=== PATIENT | male | born 1965 | race Two or more races ===

== ENCOUNTER 2025-03-02 14:00 | Emergency (ER) | payer MEDICAID, SELFPAY ==
[2025-03-02 14:05] VITALS: BP 126/61; PULSE 65; RESP 18; TEMP 36.4; O2SAT 99
[2025-03-02 14:06] VITALS: BMI 16.1
[2025-03-02 14:19] VITALS: PULSE 79; RESP 18; O2SAT 98
--- NOTE | 2025-03-02 14:37 | XR_ITS ---
Examination: Knee, left , 3 views Technique: Knee AP, lateral, oblique 3 views Date and time of exam: March 02, 2025 1436 hours INDICATIONS: Left knee pain beginning 3 hours ago FINDINGS: Moderate osteopenia Mild narrowing medial joint space Moderate knee effusion No fracture or dislocation IMPRESSION: Mild narrowing medial joint space Moderate knee effusion
[2025-03-02 15:02] LABS: Basophils # (Auto) 0.1 Thou/mm3 (0.0-0.2); Basophils % (Auto) 1 % (0-2.5); Eosinophils # (Auto) 0.1 Thou/mm3 (0.0-0.5); Eosinophils % (Auto) 1 % (0-10); Hematocrit 34.9 % (41.0-53.0); Hemoglobin 11.8 g/dL (13.5-16.0); Immature Granulocytes % (Auto) 0 % (0-0); Immature Granulocytes Auto 0.03 Thou/mm3 (0.00-0.00); Lymphocytes % (Auto) 18 % (10-50); Mean Corpuscular HGB Conc 33.8 g/dl (31.0-37.0); Mean Corpuscular Hemoglobin 31.3 pg (25.0-35.0); Mean Corpuscular Volume 93 fL (80-100); Monocytes % (Auto) 9 % (0-12); Neutrophils % (Auto) 71 % (37-80); Nucleated Red Blood Cell % 0 /100 WBC (0); Platelet Count 236 Thou/mm3 (140-440); Red Blood Count 3.77 Miln/mm3 (4.50-5.90); White Blood Count 11.2 Thou/mm3 (3.8-10.6)
[2025-03-02] MEDS: KETOROLAC INJ 60 MG/2 ML VIAL 30 MG IM (15:07)
--- NOTE | 2025-03-02 15:14 | EDNOTE_ITS ---
<Statement entered by Angela Lorenzo MD - 03/04/25 06:14> As co-signing physician, I was present and available for consult prn. I concur with the plan and care as documented by the midlevel provider. Lower Extremity Injury RME/HPI General Chief Complaint: Extremity Injury, Lower Stated Complaint: LEG PAIN Time Seen by Provider: 03/02/25 14:17 Source: patient Arrival date/time: 03/02/25 14:00 59-year-old male with no known medical history presents to the emergency room with a chief complaint of tenderness and pain to his left knee x 1 day Mode of arrival: ambulatory Limitations: no limitations Related Data Previous Rx's ?Medication ?Instructions ?Recorded acetaminophen 500 mg tablet 500 mg PO QID PRN fever or pain 06/07/20 (Tylenol Extra Strength) #30 tabs albuterol sulfate 90 mcg/actuation 2 puff inhalation Q ID PRN 06/07/20 aerosol inhaler shortness of breath or wheez ing #18 grams azithromycin 250 mg tablet See Rx Instructions PO .COM PLEX #6 06/07/20 tabs Allergies Allergy/AdvReac Type Severity Reaction Status Date / Time No Known Allergies Allergy Verified 03/02/25 14:23 Review of Systems Review of Systems Systems Reviewed: All systems reviewed, normal except as documented Constitutional Constitutional: Reports system reviewed and no additional complaints, except as documented, Denies fatigue, Denies fever(s), Denies headache(s) and Denies weakness Eyes Eyes: Reports system reviewed and no additional complaints, except as documented, Denies blurry vision and Denies change in vision ENT Ears, Nose, Mouth, and Throat: Reports system reviewed and no additional complaints, except as documented, Denies otalgia, Denies headache(s), Denies nasal congestion, Denies throat swelling and Denies vertigo Cardiovascular Cardiovascular: Reports system reviewed and no additional complaints, except as documented, Denies chest pain, Denies dyspnea and Denies dyspnea on exertion Respiratory Respiratory: Reports system reviewed and no additional complaints, except as documented, Denies chest congestion, Denies cough, Denies dyspnea, Denies dyspnea on exertion and Denies wheezing Gastrointestinal Gastrointestinal: Reports system reviewed and no additional complaints, except as documented, Denies abdominal pain, Denies cramping, Denies nausea and Denies vomiting Genitourinary Genitourinary: Reports system reviewed and no additional complaints, except as documented, Denies dysuria and Denies hematuria Musculoskeletal Musculoskeletal: Reports system reviewed and no additional complaints, except as documented, Denies back pain and Reports joint swelling Integumentary/Breasts Skin/Breast: Reports system reviewed and no additional complaints, except as documented and Denies wounds Neurologic Neurologic: Reports system reviewed and no additional complaints, except as documented, Denies confusion, Denies headache(s), Denies lack of coordination, Denies vertigo and Denies weakness Psychiatric Psychiatric: Reports system reviewed and no additional complaints, except as documented, Denies anxiety, Denies confusion, Denies depression, Denies paranoia, Denies suicidal ideation and Denies tactile hallucinations Endocrine Endocrine: Reports system reviewed and no additional complaints, except as documented and Denies fatigue Hematologic/Lymphatic Hematologic/Lymphatic: Reports system reviewed and no additional complaints, except as documented and Denies lymphadenopathy Allergic/Immunologic Allergic/Immunologic: Reports system reviewed and no additional complaints, except as documented, Denies throat swelling, Denies urticaria and Denies wheezing Past Medical History Past Medical History CARDIAC: Negative Congestive Heart Failure RESPIRATORY: Negative Chronic Obstructive Pulmonary Disease (COPD) GENITOURINARY: Negative Renal Disease ENDOCRINE: Positive Endocrine Disorders and Diabetes Mellitus Type 2; Negative Diabetes Mellitus Type 1 Social History SMOKING STATUS: Light (< 1 pack/day) ED Exam General Limitations: Present no limitations General appearance: Present alert and in no apparent distress Head Head exam: Present atraumatic Eye Eye exam: Present normal appearance, PERRL and EOMI ENT ENT exam: Present normal exam, normal oropharynx and mucous membranes moist Neck Neck exam: Present normal inspection, full ROM and trachea midline Chest Chest inspection: Present normal inspection and symmetric chest wall rise Respiratory Respiratory exam: Present normal lung sounds bilaterally Cardiovascular Cardiovascular exam: Present regular rate, normal rhythm and normal heart sounds Abdominal Exam Abdominal exam: Present soft and normal bowel sounds Extremities Exam Extremities exam: Present normal inspection and full ROM Expanded Lower Extremity Exam Hip/Pelvis exam: Present normal inspection Upper leg exam: Present normal inspection Knee exam: Present tenderness, swelling, effusion, pain with valgus and pain with varus; Absent full ROM Back Exam Back exam: Present normal inspection and full ROM Neurological Exam Neurological exam: Present alert, oriented X3 and CN II-XII intact Psychiatric Psychiatric exam: Present normal affect and normal mood Skin Skin exam: Present warm, dry, intact and normal color Course Quality Measures none Orders Category Date Time Status XR knee LT 3V Stat Exams 03/02/25 14:37 Completed CBC Stat Lab 03/02/25 14:50 Completed CK [Creatine Kinase] Stat Lab 03/02/25 14:50 Completed CMP [Comprehensive Metabolic Panel] Stat Lab 03/02/25 14:50 Completed Uric Acid Stat Lab 03/02/25 14:50 Completed Ketorolac Inj [Toradol Inj] Med 03/02/25 14:40 Discontinued 30 mg IM X1 ONE Vital Signs Vital signs: Vital Signs Temperature 97.5 F 03/02/25 14:05 Pulse Rate 65 03/02/25 14:05 Respiratory Rate 18 03/02/25 14:05 Blood Pressure 126/61 03/02/25 14:05 Pulse Oximetry (%) 99 03/02/25 14:05 Oxygen Delivery Method Room Air 03/02/25 14:05 O2 saturation 99% within normal limits Extremity Injury, Lower MDM Narrative MDM Narrative:: 59-year-old male with no known medical history presents to the emergency room with a chief complaint of tenderness and pain to his left knee x 1 day Patient is hemodynamically stable and in no apparent distress. Physical examination shows tenderness and pain to the patient's left knee. Patient denies any trauma states he did not slip and just began yesterday. CBC CMP were negative for any acute findings. CK was negative for rhabdo. Uric acid was negative X-ray of the knee was negative for any acute fracture or dislocation. Patient was educated to follow-up with primary care provider to assess for any ligament damage or tears as an MRI may be indicated Patient was discharged and educated to follow-up with primary care provider in the next 24 to 48 hours and return to the emergency room for any evidence of worsening signs or symptoms Patient data External records reviewed:: [facility] previous records Clinical information provided by:: patient Social determinants that could affect healthcare access:: none Patient has the following chronic illnesses:: No chronic illness How is presenting disease/condition affected by chronic disease/condition?: no chronic disease Evaluation data The following diagnostics were reviewed and interpreted by me:: lab results and radiology exam(s) Lab and/or radiology exams considered but not ordered:: Labs and radiology exams considered and ordered Interpretation Summary: X-ray knee-FINDINGS: Moderate osteopenia Mild narrowing medial joint space Moderate knee effusion No fracture or dislocation IMPRESSION: Mild narrowing medial joint space Moderate knee effusion Medications / Prescriptions Medications or Prescriptions considered but not ordered:: Medication given Medication administrations:: Medication Administration History Discontinued Medications Ketorolac Tromethamine (Ketorolac Inj 60 Mg/2 Ml Vial) 30 mg IM X1 ONE Stop: 03/02/25 14:41 Last Admin: 03/02/25 15:07 Dose: 30 mg Documented By: KF Medication given Consultations Consultation(s) initiated? (list below): No Diagnosis Extremity Injury, Lower Differential Diagnosis: acute internal derangement of knee and other Most likely diagnosis given after review of the tests above:: Knee sprain Admission Indicated Admission indicated?: not indicated Admission Request Was there a request for admission?: No Disposition Plan Disposition Plan: Discharge Discharge Attestation Discharge Attestation: The patient and all family members were given an opportunity to ask questions and understood the discharge instructions. Discharge instructions specifically effects, indications for sooner follow up or return to the emergency department, and the expected course of current diagnosis. Patient condition: Stable Discharge Plan Plan Patient Disposition: HOME (Self Care) Discharge Disposition comment: Stable Prescriptions/Referrals Prescriptions/Med Rec: No Action azithromycin 250 mg tablet See Rx Instructions .ROUTE .COMPLEX Qty: 6 0RF Rx Instructions: take 500 mg today (day 1), then 250 mg for 4 days (days 2-5) acetaminophen [Tylenol Extra Strength] 500 mg tablet 500 mg PO QID PRN (Reason: fever or pain) Qty: 30 0RF albuterol sulfate 90 mcg/actuation HFA aerosol inhaler 2 puff IH QID PRN (Reason: shortness of breath or wheezing) Qty: 18 0RF Referrals: No Primary/Family,Physician [Primary Care Provider] - In 1 week Problem List Clinical Impression: Left knee sprain Patient/Caregiver Discharge Instructions Education Materials: ED GEORGIE Wrap, ED Knee Sprain Additional Instructions: Por favor, consulte con morrison m?dico de cabecera en las pr?ximas 24 a 48 horas. Se le realizaron radiograf?as de rodilla y resultaron negativas para cualquier hallazgo vladimir. No hay fractura ni luxaci?n aguda. Morrison an?lisis de timmy fue negativo para cualquier infecci?n. Por favor, consulte con morrison m?dico de cabecera para un control y evaluaci?n adicionales de los ligamentos de morrison rodilla. Podr?a estar indicada kelly resonancia magn?charli. Ante cualquier evidencia de empeoramiento de los signos o s?ntomas, acuda a urgencias de inmediato. Print Language: Tajik Stand Alone Forms: Rayna Award Info., Patient Portal Info Letter PA/ESTHETICS INSTRUCTOR Supervising Physician PA/ESTHETICS INSTRUCTOR Supervising Physician: Dr. LORENZO
[2025-03-02 15:21] LABS: Alanine Aminotransferase 13 U/L (10-49); Albumin, Serum 4.5 gm/dL (3.4-4.8); Albumin/Globulin Ratio 1.6 (1.2-2.2); Alkaline Phosphatase 139 U/L (46-116); Anion Gap 9 (7-16); Aspartate Amino Transferase 21 U/L (0-34); BUN/Creatinine Ratio 23 Ratio (12-20); Bilirubin,Total 0.4 mg/dL (0.3-1.2); Blood Urea Nitrogen 28 mg/dL (9-23); Calcium 9.4 mg/dL (8.3-10.6); Calcium (Corrected) 9.4 mg/dL (8.5-10.1); Carbon Dioxide 25.9 mMol/L (20.0-31.0); Chloride 107 mMol/L (98-107); Creatine Kinase 167 U/L (34-171); Creatinine (Component) 1.2 mg/dL (0.6-1.3); Estimated Creatinine Clearance 42.7 mL/min (>60); Globulin 2.8 gm/dL (2.3-3.5); Glucose 167 mg/dL (74-106); Osmolality,Calculated 292 (275-295); Sodium 142 mMol/L (136-145); Total Protein 7.3 gm/dL (5.7-8.2); Uric Acid 5.3 mg/dL (3.7-9.2); eGFR > 60 See Note
[2025-03-02 16:28] VITALS: BP 142/90; PULSE 98; RESP 17; TEMP 36.7; O2SAT 97
--- NOTE | 2025-03-02 16:40 | PC.NURSE ---
per patient's sister family will tile picker aptient. ETA [id number]
== END 2025-03-02 17:16 | disposition home or self-care (01) ==
PROVIDERS: Nurse Practitioner Family; Emergency Provider Emergency Medicine
DX: S83.92XA Sprain of unspecified site of left knee, initial encounter (principal); X58.XXXA Exposure to other specified factors, initial encounter
CPT/HCPCS: 36415; 73562; 80053; 82550; 84550; 85025; 96372; 99283; J1885

== ENCOUNTER 2025-08-10 10:44 | Inpatient (IN) | payer MEDICAID, SELFPAY ==
[2025-08-10] VITALS (9 sets, daily range): BP systolic 126–168; BP diastolic 79–106; PULSE 99–114; RESP 16–21; TEMP 36.3–37.1; O2SAT 94–100; BMI 15.2; BMI 15.6
--- NOTE | 2025-08-10 11:08 | PD.EDEXREM ---
ED Extremity Problem RME/HPI General Chief complaint: Ankle/Foot Injury Stated complaint: INFECTION Time Seen by Provider: 08/10/25 10:59 Arrival date/time: 08/10/25 10:44 RME / HPI RME / HPI Narrative: 60 year old male presents to the ED for evaluation of left foot redness and left great toe swelling beginning ~ 10 days ago. Accompanied by pain. Additionally reports mild redness to the right foot beginning 7 days ago. Denies any known injury/trauma. Denies fevers, chills, sweats. No history of similar redness/swelling. Related Data Previous Rx's ?Medication ?Instructions ?Recorded acetaminophen 500 mg tablet 500 mg PO QID PRN fever or pain 06/07/20 (Tylenol Extra Strength) #30 tabs albuterol sulfate 90 mcg/actuation 2 puff inhalation QID PRN 06/07/20 aerosol inhaler shortness of breath or wheezing #18 grams azithromycin 250 mg tablet See Rx Instructions PO .COMPLEX #6 06/07/20 tabs Allergies Allergy/AdvReac Type Severity Reaction Status Date / Time No Known Allergies Allergy Verified 03/02/25 14:23 Review of Systems Review of Systems Systems Reviewed: All systems reviewed, normal except as documented Past Medical History Past Medical History CARDIAC: Positive Hypercholesterolemia and Hypertension ENDOCRINE: Positive Endocrine Disorders and Diabetes Mellitus Type 2 Social History SMOKING STATUS: Current every day smoker ED Exam Narrative Physical exam: GENERAL APPEARANCE: alert and oriented x 4, well-developed, well-nourished, no acute distress HEENT: Normocephalic, atraumatic; pupils equal, round, reactive to light; EOMI; mucous membranes pink, moist; oropharynx clear NECK: Supple LUNGS: CTABL; no wheezes, no rales, no rhonchi HEART: Regular rate, regular rhythm; normal S1, S2; no murmurs ABDOMEN: non distended; normal BS; soft, no tenderness, no guarding, no rebound; no masses, no organomegaly, no hernia EXTREMITIES: left foot erythema edema with a wound to the plantar surface of the left great toe, no discharge, erythema to the plantar surface of the right foot with some blistering to the area near the arch; no edema NEUROLOGIC: awake; alert and oriented x4; cranial nerves II-XII grossly intact PSYCHIATRIC: appropriate mood and affect SKIN: warm, dry, normal color; no rashes Course Quality Measures none Orders Category Date Time Status XR foot comp LT min 3V Stat Exams 08/10/25 11:14 Completed A1C [Glycohemoglobin w (eAG)] Stat Lab 08/10/25 11:29 Completed B-Type Natriuretic Peptide Stat Lab 08/10/25 11:29 Completed Blood Culture (Lab) Stat Lab 08/10/25 11:29 Received CBC Stat Lab 08/10/25 11:29 Completed CRP [C-Reactive Protein] Stat Lab 08/10/25 11:29 Completed Comprehensive Metabolic Panel Stat Lab 08/10/25 11:29 Completed Creatinine,Random Urine Stat Lab 08/10/25 13:37 Ordered ESR [Sed Rate (ESR)] Stat Lab 08/10/25 11:29 Completed Electrolytes, Urine Random Stat Lab 08/10/25 13:37 Ordered Lactate (Lactic Acid) Stat Lab 08/10/25 11:29 Completed Magnesium Stat Lab 08/10/25 11:29 Completed Partial Thromboplastin Time Stat Lab 08/10/25 11:29 Completed Procalcitonin Stat Lab 08/10/25 11:29 Completed Protein Total, Random Urine Stat Lab 08/10/25 13:37 Ordered Prothrombin Time with INR Stat Lab 08/10/25 11:29 Completed Troponin I Stat Lab 08/10/25 11:29 Completed UA, C/S IF [Urinalysis, C/S if Indicated] Stat Lab 08/10/25 12:04 Completed Urea Nitrogen, Random Urine Stat Lab 08/10/25 13:37 Ordered Piper/Tazo 3.375 gm Premix [Zosyn] Med 08/10/25 13:34 Active 3.375 gm in 50 ml IV X1 Sodium Chloride 0.9% 1000 ml [Ns] 1,000 ml Med 08/10/25 13:33 Active IV 999 mls/hr Vancomycin/Ns 1 gm Ivpb 200 ml Med 08/10/25 13:34 Active IV X1 Vital Signs Vital signs: Vital Signs Temperature 98.4 F 08/10/25 10:46 Pulse Rate 105 H 08/10/25 10:46 Respiratory Rate 16 08/10/25 10:46 Blood Pressure 126/84 08/10/25 10:46 Pulse Oximetry (%) 99 08/10/25 10:46 Oxygen Delivery Method Room Air 08/10/25 10:46 Pulse ox is 99% on room air which is adequate. Extremity Problem MDM Narrative MDM Narrative:: Charlotte Olsen, hussein scribing for and in the presence of Dr. Lorenzo. Patient data External records reviewed:: [facility] previous records Clinical information provided by:: patient Social determinants that could affect healthcare access:: none Patient has the following chronic illnesses:: Diabetes How is presenting disease/condition affected by chronic disease/condition?: exacerbated by Evaluation data The following diagnostics were reviewed and interpreted by me:: lab results and radiology exam(s) Lab and/or radiology exams considered but not ordered:: None Interpretation Summary: Ordering Physician: Angela Lorenzo MD Date of Service: 08/10/25 Procedure(s): XR foot comp LT min 3V Accession Number(s): [id number] cc: Angela Lorenzo MD; Ray So DO~ Examination: Foot, left, 3 views Technique: AP, oblique, lateral views foot, 3 views Date and time of exam: 08/10/2025, 11:53 a.m. INDICATION: Left foot pain, swelling and ulcers for 2 weeks. History of diabetes. FINDINGS: Diffuse forefoot soft tissue swelling is present, severely involving the great toe with foci of subcutaneous gas along the plantar side of the great toe. There is a small focal lucency involving the distal plantar side of the distal phalanx of the great toe, suspicious for erosion/early osteomyelitis. Elsewhere, no evidence for osteomyelitis. No acute fracture or subluxation. There appear to be hammertoe deformities of the second through fifth toes. Bilateral bunions noted. IMPRESSION: Cellulitis changes most severely involving the great toe with subcutaneous gas and small focal erosion at the distal plantar side of the distal phalanx of the great toe concerning for osteomyelitis. MRI can be obtained for further evaluation. Dictated By: Ray So DO Signed By: <Electronically signed by Ray So DO in OV> 08/10/25 1225 Medications / Prescriptions Medications or Prescriptions considered but not ordered:: None Medication administrations:: Medication Administration History Sodium Chloride (Ns) 1,000 mls @ 999 mls/hr IV .Q1H1M ONE Stop: 08/10/25 14:33 Vancomycin/Sodium Chloride (Vancomycin/Ns 1 Gm Ivpb) 200 mls @ 120 mls/hr IV X1 ONE Stop: 08/10/25 15:13 Piperacillin/Tazobactam/Dextrose (Zosyn) 3.375 gm in 50 mls @ 100 mls/hr IV X1 ONE; Protocol Stop: 08/10/25 14:03 See above Consultations Consultation(s) initiated? (list below): Yes Consultation #1 (Physician, Specialty, Details): I spoke with hospitalist team B for admission. Time: 13:38 Diagnosis Most likely diagnosis given after review of the tests above:: Cellulitis Osteomyelitis JUNO Admission Indicated Admission indicated?: indicated Admission Request Was there a request for admission?: Yes Admission Attestation Admission request attestation: Discussed case with [] from Hospitalist service regarding admission. Discussed patients ED course, exam findings, labs, and radiology results. The Hospitalist [agrees,declines] to accept the patient for admission. Disposition Plan Disposition Plan: Admit Discharge Plan Plan Patient Disposition: Admit Acute Care w/in Hospital Prescriptions/Referrals Prescriptions/Med Rec: No Action azithromycin 250 mg tablet See Rx Instructions .ROUTE .COMPLEX Qty: 6 0RF Rx Instructions: take 500 mg today (day 1), then 250 mg for 4 days (days 2-5) acetaminophen [Tylenol Extra Strength] 500 mg tablet 500 mg PO QID PRN (Reason: fever or pain) Qty: 30 0RF albuterol sulfate 90 mcg/actuation HFA aerosol inhaler 2 puff IH QID PRN (Reason: shortness of breath or wheezing) Qty: 18 0RF Referrals: Gregory Narayanan MD [Primary Care Provider, Family Practice] - In 1 week Problem List Clinical Impression: Cellulitis, Osteomyelitis, JUNO (acute kidney injury) Patient/Caregiver Discharge Instructions Print Language: Burmese Stand Alone Forms: Rayna Award Info., Patient Portal Info Letter
--- NOTE | 2025-08-10 11:14 | XR_ITS ---
Examination: Foot, left, 3 views Technique: AP, oblique, lateral views foot, 3 views Date and time of exam: 08/10/2025, 11:53 a.m. INDICATION: Left foot pain, swelling and ulcers for 2 weeks. History of diabetes. FINDINGS: Diffuse forefoot soft tissue swelling is present, severely involving the great toe with foci of subcutaneous gas along the plantar side of the great toe. There is a small focal lucency involving the distal plantar side of the distal phalanx of the great toe, suspicious for erosion/early osteomyelitis. Elsewhere, no evidence for osteomyelitis. No acute fracture or subluxation. There appear to be hammertoe deformities of the second through fifth toes. Bilateral bunions noted. IMPRESSION: Cellulitis changes most severely involving the great toe with subcutaneous gas and small focal erosion at the distal plantar side of the distal phalanx of the great toe concerning for osteomyelitis. MRI can be obtained for further evaluation.
[2025-08-10 12:02] LABS: Lactate (Lactic Acid) 1.3 mMol/L (0.4-2.0)
[2025-08-10 12:03] LABS: Basophils # (Auto) 0.0 Thou/mm3 (0.0-0.2); Basophils % (Auto) 0 % (0-2.5); Eosinophils # (Auto) 0.1 Thou/mm3 (0.0-0.5); Eosinophils % (Auto) 0 % (0-10); Hematocrit 34.8 % (41.0-53.0); Hemoglobin 11.8 g/dL (13.5-16.0); Immature Granulocytes Auto 0.06 Thou/mm3 (0.00-0.00); Lymphocytes # (Auto) 0.7 Thou/mm3 (1.0-4.8); Lymphocytes % (Auto) 6 % (10-50); Mean Corpuscular HGB Conc 33.9 g/dl (31.0-37.0); Mean Corpuscular Hemoglobin 31.0 pg (25.0-35.0); Mean Corpuscular Volume 91 fL (80-100); Monocytes # (Auto) 1.0 Thou/mm3 (0.0-0.8); Monocytes % (Auto) 8 % (0-12); Neutrophils # (Auto) 11.3 Thou/mm3 (1.8-7.7); Neutrophils % (Auto) 86 % (37-80); Nucleated Red Blood Cell # 0.00 Thou/mm3 (0.00-0.00); Nucleated Red Blood Cell % 0 /100 WBC (0); Platelet Count 233 Thou/mm3 (140-440); RDW Standard Deviation 46.7 fL (35.1-43.9); Red Blood Count 3.81 Miln/mm3 (4.50-5.90); White Blood Count 13.2 Thou/mm3 (3.8-10.6)
[2025-08-10 12:12] LABS: Collection Type, Urine Clean Catch; Squamous Epithelial Cell,Urine 0 /hpf (0-5)
[2025-08-10 12:20] LABS: Bacteria,Urine Rare; Bilirubin,Urine Negative (Negative); Blood,Urine Negative (Negative); Clarity,Urine Clear (Clear/Hazy); Color,Urine Lt-Yellow (Lt Yel-Yel); Culture Indicated,Urine Not Indicated; Glucose, Urine 4+ (Negative); Ketones,Urine Negative (Negative); Leukocyte Esterase,Urine Negative (Negative); Nitrite,Urine Negative (Negative); PH,Urine 6.0 (5.0-7.0); Protein,Urine Trace (Neg - Trace); RBC,Urine < 1 /hpf (0-3); Specific Gravity,Urine 1.014 (1.001-1.035); Urobilinogen,Urine Negative mg/dL (0.0-1.0); WBC,Urine 4 /hpf (0-5)
[2025-08-10 12:24] LABS: INR 0.9 (0.9-1.3); Partial Thromboplastin Time 28.8 Seconds (22.0-36.0); Prothrombin Time 9.9 Seconds (9.0-12.2)
--- NOTE | 2025-08-10 12:30 | PC.NURSE ---
PER PROVIDER OKAY TO FEED PT. PT GIVEN SANDWICH AND WATER.
[2025-08-10 12:34] LABS: Glucose Estimated Average 148 mg/dL (80-131); Hemoglobin A1C 6.8 % Hgb (4.8-6.0)
[2025-08-10 12:38] LABS: B-Type Natriuretic Peptide 192 pg/mL (0-100)
[2025-08-10 12:53] LABS: Alanine Aminotransferase 14 U/L (10-49); Albumin, Serum 4.8 gm/dL (3.4-4.8); Albumin/Globulin Ratio 1.6 (1.2-2.2); Alkaline Phosphatase 88 U/L (46-116); Anion Gap 11 (7-16); Aspartate Amino Transferase 18 U/L (0-34); BUN/Creatinine Ratio 15 Ratio (12-20); Bilirubin,Total 0.5 mg/dL (0.3-1.2); Blood Urea Nitrogen 37 mg/dL (9-23); Calcium 10.4 mg/dL (8.3-10.6); Calcium (Corrected) 10.4 mg/dL (8.5-10.1); Carbon Dioxide 25.1 mMol/L (20.0-31.0); Chloride 102 mMol/L (98-107); Creatinine (Component) 2.4 mg/dL (0.6-1.3); Estimated Creatinine Clearance 19.9 mL/min (>60); Globulin 3.0 gm/dL (2.3-3.5); Glucose 204 mg/dL (74-106); Magnesium 2.2 mg/dL (1.6-2.6); Osmolality,Calculated 290 (275-295); Potassium 4.3 mMol/L (3.4-5.1); Procalcitonin 1.47 ng/ml (0.0-0.49); Sodium 138 mMol/L (136-145); Total Protein 7.8 gm/dL (5.7-8.2); Troponin I < 0.020 ng/mL (0.0-0.045); eGFR 30 See Note
[2025-08-10 12:56] LABS: C-Reactive Protein 26.4 mg/dL (0.0-0.9)
[2025-08-10 13:13] LABS: Sed Rate (ESR) 84 mm/hr (0-20)
[2025-08-10 14:17] LABS: Chloride,Urine Random 41.1 mMol/L (55.0-125.0); Creatinine,Random Urine 52 mg/dL (30-125); Potassium,Urine Random 20 mMol/L (12-62); Protein Total, Random Urine 36 mg/dL (1-14); Sodium,Urine Random 36.9 mMol/L (20.0-110.0); Urea Nitrogen, Random Urine 340.0 mg/dL (350.0-1000.0)
--- NOTE | 2025-08-10 14:35 | XR_ITS ---
CLINICAL INDICATION: Shortness of Breath Exam time: 08/10/2025, 2:43 p.m. TECHNIQUE: XR chest 1V portable COMPARISON: Chest radiograph 06/06/2020 FINDINGS: The cardiomediastinal silhouette is within normal limits. No airspace opacities suggestive of pneumonia. No mass detected. No pleural effusion or pneumothorax. No acute osseous abnormality detected. IMPRESSION: No radiographic evidence for acute cardiopulmonary abnormality. No significant interval change since the comparison study. - This report was generated utilizing speech recognition software. -
[2025-08-10] MEDS: SODIUM CHLORIDE 0.9% 1000 ML 1,000 ML 999 ML IV (14:41)
[2025-08-10] MEDS: PIPER/TAZO 3.375 GM PREMIX 3.375 GM/50 ML BAG IV (14:42)
[2025-08-10] MEDS: VANCOMYCIN/NS 1 GM IVPB 200 ML IV (14:59)
[2025-08-10] MEDS: CLINDAMYCIN 900MG IVPB 900 MG in PRE-MIXED 1 BAG 50 MG IV ×2 (15:33→21:38)
[2025-08-10] MEDS: RINGERS LACTATED 1000 ML 1,000 ML 999 ML IV (15:33)
[2025-08-10 15:38] LABS: Amphetamine/Methamp Scrn,U Positive (Negative); Barbiturate Screen,Urine Negative (Negative); Benzodiazepines Screen,Urine Negative (Negative); Benzoylecgonine Screen, Ur Negative (Negative); Fentanyl Screen,Urine Negative (Negative); Opiate Screen,Urine Negative (Negative); THC Screen,Urine Negative (Negative)
[2025-08-10 16:19] LABS: HIV (1&2) Antibody Rapid Non-Reactive
[2025-08-10 16:19] LABS: Hepatitis A Antibody IgM Non Reactive (Non React); Hepatitis B Core Antibody IgM Non Reactive (Non React); Hepatitis B Surface Antigen Non Reactive (Non React); Hepatitis C Antibody Non Reactive (Non React)
[2025-08-10] MEDS: CEFEPIME INJ 1 GM in SODIUM CHLORIDE 0.9% (Popper) 50 ML IV (16:25)
--- NOTE | 2025-08-10 17:38 | PC.NURSE ---
pt arrived on floor. blood pressure 165/105. HR. [address] Mckinnon and made aware. No new orders at this time.
--- NOTE | 2025-08-10 17:43 | ESHP_ITS ---
<Statement entered by Dajuan Rosenberg MD - 08/10/25 18:28> Patient seen and examined at bedside. I discussed and supervised with the regulatory affairs intern physician who took care of this patient. I personally saw and examined the patient. I agree with most of the assessment and plan. Plan of care discussed with attending Dr. Guillen. Dajuan Rosenberg MD PGY-2 Documentation for date of: 08/10/25 HPI History of Present Illness History of present illness: A 60-year-old male with past medical history of hypertension, diabetes mellitus presents with left foot and great toe redness and swelling x 10 days and right bottom foot redness x 7 days. ?Patient reported left great toe problem for the past 2 years, has never gotten this bad. 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 Did not know how he got his wounds.? Saw foot doctor 2 weeks ago with his feet were still normal. Denies any known injury/trauma. Denies fevers, chills, sweats. ?No history of IV drug use but admitted to smoking methamphetamine. ED course: Labs significant for: WBC 13.2, hemoglobin 0.8, lactate 1.3, ferritin 20.4, ESR 84, Pro-Dylan 1.47. A1c 6.8%. BUN 37, creatinine 2.4, eGFR 30, JUNO. Imaging significant for: X-ray left foot showing signs of osteomyelitis, soft tissue swelling concerning for cellulitis, imaging concerning for subcutaneous gas. Patient received vancomycin, Zosyn, 1 L bolus normal saline in the ED. PMH: HTN, DM PSH: Bilateral cataract surgery. SH: patient endorses methamphetamine use, smoking quarter pack a day x 50 years, reports history of alcohol abuse but last drink 3 months ago. Allergies:? No known drug allergies Medications: Denies Review of Systems Review of Systems Systems Reviewed: All systems reviewed, normal except as documented Past Medical History Past Medical History Comments PMH COMMENT: PMH: HTN, DM PSH: Bilateral cataract surgery. SH: patient endorses methamphetamine use, smoking quarter pack a day x 50 years, reports history of alcohol abuse but last drink 3 months ago. Allergies:? No known drug allergies Medications: Denies Exam Vital Signs Temp Pulse Resp BP Pulse Ox O2 Del Method 98.5 F 107 H 18 154/97 H 98 Room Air 08/10/25 12:21 08/10/25 16:00 08/10/25 16:00 08/10/25 16:00 08/10/25 16:00 08/10/25 12:21 Narrative Exam GENERAL APPEARANCE: alert and oriented x 4, cachexia, no acute distress HEENT: Temporal wasting, atraumatic; constricted pupil bilaterally; EOMI; mucous membranes pink, moist; oropharynx clear NECK: Supple LUNGS: Distant breath sounds bilaterally HEART: Regular rate, regular rhythm ABDOMEN: non distended; normal BS; soft, no tenderness, no guarding, no rebound; no masses, no organomegaly, no hernia EXTREMITIES: Right plantar erythema spreading to lateral foot with puncture wounds, tenderness to palpation, white fluctuant, possible abscess, concerning for cellulitis versus osteomyelitis. ?Left big toe swelling and erythema spreading to mid dorsum foot with plantar puncture wound, tender to palpation, white fluctuant in lateral big toe, concerning for cellulitis versus osteomyelitis. NEUROLOGIC: awake; alert and oriented x4; cranial nerves II-XII grossly intact PSYCHIATRIC: appropriate mood and affect SKIN: warm, dry, normal color; no rashes Results: Labs 08/11/25 04:57 08/11/25 04:57 Labs: Short CBC 08/10/25 Range/Units 11:29 WBC 13.2 H (3.8-10.6) Thou/mm3 Hgb 11.8 L (13.5-16.0) g/dL Hct 34.8 L (41.0-53.0) % Plt Count 233 (140-440) Thou/mm3 BMP 08/10/25 11:29 Sodium 138 Potassium 4.3 Chloride 102 Carbon Dioxide 25.1 BUN 37 H Creatinine 2.4 H Glucose 204 H Calcium 10.4 Cardiac Enzymes 08/10/25 Range/Units 11: Troponin I < 0.020 (0.0-0.045) ng/mL Liver Function 08/10/25 Range/Units 11:29 Total Bilirubin 0.5 (0.3-1.2) mg/dL AST 18 (0-34) U/L ALT 14 (10-49) U/L Alkaline Phosphatase 88 (46-116) U/L Albumin 4.8 (3.4-4.8) gm/dL Urine 08/10/25 Range/Units 12:04 Urine Color Lt-Yellow (Lt Yel-Yel) Urine Clarity Clear (Clear/Hazy) Urine pH 6.0 (5.0-7.0) Ur Specific [place] 1.014 (1.001-1.035) Urine Protein Trace (Neg - Trace) Urine Glucose (UA) 4+ A (Negative) Quality Measures Quality Measures VTE prophylaxis Medications Home Medications and Allergies Allergies Allergy/AdvReac Type Severity Reaction Status Date / Time No Known Allergies Allergy Verified 08/11/25 14:51 Visit Medications Acetaminophen (Acetaminophen 325 Mg Tablet) 650 mg PO Q6H PRN PRN Reason: Fever >101.5 Stop: 09/09/25 14:28 Dextrose (Dextrose 50%-Water Inj 50 Ml Syringe) 25 ml IV Q15MIN PRN PRN Reason: BG 50-70 responsive npo pt Stop: 09/09/25 14:42 Dextrose (Dextrose 50%-Water Inj 50 Ml Syringe) 50 ml IV Q15MIN PRN PRN Reason: BG <50 OR BG <70 & pt unresponsive Stop: 09/09/25 14:42 Docusate Sodium (Docusate Sod 100 Mg Capsule) 100 mg PO QDAY PRN; Protocol PRN Reason: CONSTIPATION Stop: 09/09/25 14:33 Glucagon (Glucagon Inj 1 Mg Vial) 1 mg IM Q15MIN PRN PRN Reason: BG <70, and no IV access Heparin Sodium (Porcine) (Heparin Sod Inj 5000 Unit/Ml Vial) 5,000 unit SC Q12HR [facility] Stop: 08/24/25 20:59 Hydromorphone HCl (Hydromorphone Inj 2 Mg/Ml Vial) 1 mg IVP Q2H PRN PRN Reason: PAIN SCALE 7-10 (Severe Stop: 08/15/25 14:33 Clindamycin Phosphate 900 mg/ (IV Miscellaneous Supplies) 50 mls @ 50 mls/hr IV Q8HR [facility] Stop: 08/17/25 14:44 Last Admin: 08/10/25 15:33 Dose: 50 mls/hr Cefepime HCl 2 gm/ Sodium (Chloride) 50 mls @ 100 mls/hr IV Q12HR [facility] Stop: 08/17/25 20:59 Metronidazole (Flagyl 500 Mg Iv) 500 mg in 100 mls @ 200 mls/hr IV Q8HR BO Stop: 08/17/25 21:59 Insulin Human Lispro (Insulin Lispro (Admelog) 1 Unit/0.01 Ml Unit) 0 unit SC ACHS BO; Protocol Stop: 09/09/25 17:44 Ondansetron HCl (Ondansetron Inj 2 Mg/Ml Inj 2 Ml) 4 mg IVP Q6H PRN; Protocol PRN Reason: NAUSEA OR VOMITING Stop: 09/09/25 14:28 Pharmacy Consult (Vancomycin Pharmacy To Dose 1 Each Each) 1 each IV QDAY PRN PRN Reason: PROTOCOL Stop: 09/10/25 08:59 Sennosides (Senna Tablet) 1 tab PO QDAY PRN; Protocol PRN Reason: constipation Stop: 09/09/25 14:33 Tramadol HCl (Tramadol Hcl 50 Mg Tablet) 50 mg PO Q6HR PRN PRN Reason: PAIN SCALE 4-6 (Moderate Stop: 08/15/25 14:33 Last Admin: 08/10/25 16:25 Dose: 50 mg Discontinued Medications Sodium Chloride (Ns) 1,000 mls @ 999 mls/hr IV .Q1H1M ONE Stop: 08/10/25 14:33 Last Admin: 08/10/25 14:41 Dose: 999 mls/hr Vancomycin/Sodium Chloride (Vancomycin/Ns 1 Gm Ivpb) 200 mls @ 120 mls/hr IV X1 ONE Stop: 08/10/25 15:13 Last Admin: 08/10/25 14:59 Dose: 120 mls/hr Piperacillin/Tazobactam/Dextrose (Zosyn) 3.375 gm in 50 mls @ 100 mls/hr IV X1 ONE; Protocol Stop: 08/10/25 14:03 Last Admin: 08/10/25 14:42 Dose: 100 mls/hr Lactated Ringer's (Lactated Ringers) 1,000 mls @ 999 mls/hr IV .Q1H1M ONE Stop: 08/10/25 15:39 Last Admin: 08/10/25 15:33 Dose: 999 mls/hr Piperacillin/Tazobactam/Dextrose (Zosyn) 3.375 gm in 50 mls @ 12.5 mls/hr IV Q12HR BO; Protocol Stop: 08/17/25 20:59 Metronidazole (Flagyl 500 Mg Iv) 500 mg in 100 mls @ 200 mls/hr IV Q6HR BO Stop: 08/17/25 15:13 Cefepime HCl 1 gm/ Sodium (Chloride) 50 mls @ 100 mls/hr IV Q12HR BO Stop: 08/17/25 15:13 Last Admin: 08/10/25 16:25 Dose: 100 mls/hr Insulin Human Lispro (Insulin Lispro (Admelog) 1 Unit/0.01 Ml Unit) 0 unit SC Q6HR BO; Protocol Stop: 09/09/25 17:59 Tuberculin PPD (Tuberculin Ppd Inj 5 Unit/0.1 Ml Dose) 5 unit ID X1 ONE Stop: 08/10/25 15:21 Assessment & Plan Plan #Bilateral infected foot wounds concerning for cellulitis versus osteomyelitis -? Cellulitis with subcutaneous gas and small focal bony erosion concerning osteomyelitis Plan: -? Pending blood culture -? Continue clindamycin, vancomycin, cefepime, flagyl (started 08/10) -? Lactated ringer 1 L bolus -? Tramadol and Dilaudid for pain control as needed -? Follow up MRI foot bilaterally with contrast to evaluate for osteomyelitis -? Consider consult surgery tomorrow #JUNO, likely prerenal -? Creatinine of 2.4, from baseline of 1.2 - Received 1 L bolus NS in ED. Additional bolus 1 L LR. Plan: -? Continue IV fluid -? Reassess renal function after MRI with contrast -? Avoid further nephrotoxic agents -? Monitor renal function daily #Cachexia -? BMI of 15.2 in the setting of active smoker and homeless prison, history of unprotected sex -? Denied recent weight loss, admitted to chronic weight loss Plan: -? Pending HIV, Hepatitis panel -? Pending CXR -? Pending Utox #Diabetes Patient has history of diabetes. A1c 6.8%. Not on medication. - Insulin sliding scale - Carb consistent diet #Cough -? Reported coughing with black sputum intermittently, worsen when he goes to work in [employer] -? In the setting of chronic active smoker -? Nicotine patch as needed -? Nebs as needed -? PPD screening DVT prophylaxis: Heparin GI prophylaxis: None Diet: Carb consistent low Lines: PIV Code status: Full code Assessment and plan discussed with my attending physician Dr. Guillen and Dr. Rosenberg (PGY-2). Dr. Cid (PGY-1) ? resident programs assistant Attending Provider Attestation/Addendum I or my resident physicians have discussed care with the ED physician and I have made the decision to admit. I have discussed and was present for the essential components of the history, physical examination, diagnosis, and treatment plan with the resident. I agree with the patient's care as documented by the resident and amended herein by me. Yo Guillen, DO. Although this document has been carefully reviewed, there may still be some phonetic and other typographical errors. These errors are purely grammatical due to imperfections in the software program and should not be construed in any way to compromise the substance of the patient's medical care during this visit.
--- NOTE | 2025-08-10 19:31 | PC.NURSE ---
Called pharmacy regarding the PPD skin test, pharmacy will bring meds.
[2025-08-10] MEDS: TUBERCULIN PPD INJ 5 UNIT/0.1 ML DOSE ID (19:58)
[2025-08-10] MEDS: CEFEPIME INJ 2 GM in SODIUM CHLORIDE 0.9% (Popper) 50 ML IV (20:10)
[2025-08-10] MEDS: HEPARIN SOD INJ 5000 UNIT/ML VIAL SC (20:29)
[2025-08-10] MEDS: metroNIDAZOLE/NS 500 MG IVPB 500 MG/100 ML BAG 200 MG IV (21:06)
[2025-08-11] VITALS (13 sets, daily range): BP systolic 113–147; BP diastolic 68–92; PULSE 62–98; RESP 12–22; TEMP 36.4–37.7; O2SAT 96–98; BMI 15.7
--- NOTE | 2025-08-11 | XR_ITS ---
Examination: MRI left foot, without contrast Date and time of exam: August 11, 2025, 0915 hours INDICATIONS: Diagnosis diabetes, left foot great toe redness swelling and pain 10 days Technique: Multiple axial sagittal and coronal images of the left foot have been obtained with the Siemens high-resolution 1.5 Isamar MRI scanner. Images obtained include T2-weighted fat-suppressed sagittal sections, TR 3500, TE 46, T2 weighted coronal fat suppressed images, TR 3050, TE 84, T2-weighted transverse fat suppressed images, TR 3260, TE 63, proton density transverse images, TR 4720 TE 46, and T1 weighted coronal images, TR 560, TE 13. Findings: Diffuse edema dorsum of the foot at the level of the forefoot and toes most severe about the distal phalanx first digit Cortical erosions involving the distal aspect distal phalanx first digit No darek soft tissue abscess Marrow edema involving the distal first metatarsal with cortical erosion involving the plantar aspect distal first metatarsal sagittal image 5 Tarsal bones intact No thickening of the Achilles tendon Plantar fascia intact IMPRESSION: Osteomyelitis ungual tuft of distal phalanx first digit Early osteomyelitis in the distal plantar aspect first metatarsal
--- NOTE | 2025-08-11 | XR_ITS ---
Examination: MRI right foot, without contrast Date and time of exam: August 11, 2025, 0954 hours INDICATIONS: Diabetes diagnosis with swelling redness and pain involving the great toe beginning 10 days ago bilateral midfoot 7 days Technique: Multiple axial sagittal and coronal images of the right foot have been obtained with the Siemens high-resolution 1.5 Isamar MRI scanner. Images obtained include T2-weighted fat-suppressed sagittal sections, TR 3500, TE 46, T2 weighted coronal fat suppressed images, TR 3050, TE 84, T2-weighted transverse fat suppressed images, TR 3260, TE 63, proton density transverse images, TR 4720 TE 46, and T1 weighted coronal images, TR 560, TE 13. Findings: Right foot adequate marrow signal involving the tarsal bones metatarsals and digits Mild edema plantar aspect of the foot No soft tissue abscess No Achilles tendinosis, negative for planter fasciitis IMPRESSION: Negative for osteomyelitis Negative for soft tissue abscess
--- NOTE | 2025-08-11 03:58 | PC.NURSE ---
MD Johns came and examined the pt. MD Johns made aware that pt is refusing insulin coverage.
[2025-08-11] MEDS: CLINDAMYCIN 900MG IVPB 900 MG in PRE-MIXED 1 BAG 50 MG IV ×2 (05:02→13:48)
[2025-08-11 05:51] LABS: Basophils # (Auto) 0.1 Thou/mm3 (0.0-0.2); Basophils % (Auto) 0 % (0-2.5); Eosinophils # (Auto) 0.0 Thou/mm3 (0.0-0.5); Eosinophils % (Auto) 0 % (0-10); Hematocrit 32.2 % (41.0-53.0); Hemoglobin 10.7 g/dL (13.5-16.0); Immature Granulocytes Auto 0.06 Thou/mm3 (0.00-0.00); Lymphocytes # (Auto) 1.2 Thou/mm3 (1.0-4.8); Lymphocytes % (Auto) 8 % (10-50); Mean Corpuscular HGB Conc 33.2 g/dl (31.0-37.0); Mean Corpuscular Hemoglobin 30.6 pg (25.0-35.0); Mean Corpuscular Volume 92 fL (80-100); Monocytes # (Auto) 1.3 Thou/mm3 (0.0-0.8); Monocytes % (Auto) 9 % (0-12); Neutrophils # (Auto) 11.6 Thou/mm3 (1.8-7.7); Neutrophils % (Auto) 82 % (37-80); Nucleated Red Blood Cell # 0.00 Thou/mm3 (0.00-0.00); Nucleated Red Blood Cell % 0 /100 WBC (0); Platelet Count 234 Thou/mm3 (140-440); RDW Standard Deviation 46.6 fL (35.1-43.9); Red Blood Count 3.50 Miln/mm3 (4.50-5.90); White Blood Count 14.2 Thou/mm3 (3.8-10.6)
[2025-08-11] MEDS: metroNIDAZOLE/NS 500 MG IVPB 500 MG/100 ML BAG 200 MG IV ×2 (05:58→13:49)
[2025-08-11 06:11] LABS: INR 1.0 (0.9-1.3); Partial Thromboplastin Time 32.5 Seconds (22.0-36.0); Prothrombin Time 10.4 Seconds (9.0-12.2)
[2025-08-11 06:26] LABS: Alanine Aminotransferase 13 U/L (10-49); Albumin, Serum 4.2 gm/dL (3.4-4.8); Albumin/Globulin Ratio 1.7 (1.2-2.2); Alkaline Phosphatase 85 U/L (46-116); Anion Gap 12 (7-16); Aspartate Amino Transferase 18 U/L (0-34); BUN/Creatinine Ratio 18 Ratio (12-20); Bilirubin,Total 0.5 mg/dL (0.3-1.2); Blood Urea Nitrogen 25 mg/dL (9-23); Calcium 9.7 mg/dL (8.3-10.6); Calcium (Corrected) 9.7 mg/dL (8.5-10.1); Carbon Dioxide 24.2 mMol/L (20.0-31.0); Cardiac Risk Estimate 2.4 RATIO (4.0-6.7); Chloride 105 mMol/L (98-107); Cholesterol 116 mg/dL (132-200); Creatinine (Component) 1.4 mg/dL (0.6-1.3); Estimated Creatinine Clearance 35.1 mL/min (>60); Globulin 2.5 gm/dL (2.3-3.5); Glucose 158 mg/dL (74-106); HDL Cholesterol 49 mg/dL (40-60); LDL Cholesterol,Calculated 53 mg/dL (0-130); Magnesium 1.8 mg/dL (1.6-2.6); Osmolality,Calculated 288 (275-295); Phosphorous 3.8 mg/dL (2.4-5.1); Potassium 4.0 mMol/L (3.4-5.1); Sodium 141 mMol/L (136-145); Total Protein 6.7 gm/dL (5.7-8.2); Triglycerides 71 mg/dL (30-150); eGFR 57 See Note
[2025-08-11 07:18] LABS: Vancomycin,Random 11.4 mcg/mL
[2025-08-11] MEDS: HEPARIN SOD INJ 5000 UNIT/ML VIAL SC ×2 (08:42→20:18)
[2025-08-11] MEDS: CEFEPIME INJ 2 GM in SODIUM CHLORIDE 0.9% (Popper) 50 ML IV (08:42)
[2025-08-11] MEDS: NICOTINE PATCH 14 MG/24 HR PATCH.TD24 TOP (08:43)
--- NOTE | 2025-08-11 09:07 | PC.SS ---
Follow up note: Pending MRI. Possible surgical consult. On 4 IV antibiotics.
[2025-08-11] MEDS: VANCOMYCIN/NS 750 MG IVPB 750 MG/150 ML BAG 120 MG IV (10:38)
--- NOTE | 2025-08-11 13:49 | ESPR_ITS ---
<Statement entered by Dajuan Rosenberg MD - 08/11/25 21:47> Patient seen and examined at bedside. I discussed and supervised with the healthcare administration internship physician who took care of this patient. I personally saw and examined the patient. I agree with most of the assessment and plan. Plan of care discussed with attending Dr. Guillen. Dajuan Rosenberg MD PGY-2 Documentation for date of: 08/11/25 Subjective Subjective Interval history: A 60-year-old male with past medical history of hypertension, diabetes mellitus presents with left foot and great toe redness and swelling x 10 days and right bottom foot redness x 7 days. ?X-ray left foot showing signs of osteomyelitis, soft tissue swelling concerning for cellulitis, imaging concerning for subcutaneous gas. History of smoking methamphetamine, 13 pack-year cigarette, alcohol abuse last drink 2 months ago, No history of IV drug use or trauma Exam Vital Signs Temp Pulse Resp BP Pulse Ox O2 Del Method 98.8 F 70 19 116/70 98 Room Air 08/11/25 11:25 08/11/25 11:25 08/11/25 11:25 08/11/25 11:25 08/11/25 11:25 08/11/25 11:25 Narrative Exam GENERAL APPEARANCE: alert and oriented x 4, cachexia, no acute distress HEENT: Temporal wasting, atraumatic; constricted pupil bilaterally; EOMI; mucous membranes pink, moist; oropharynx clear NECK: Supple LUNGS: Distant breath sounds bilaterally HEART: Regular rate, regular rhythm ABDOMEN: non distended; normal BS; soft, no tenderness, no guarding, no rebound; no masses, no organomegaly, no hernia EXTREMITIES: Right plantar erythema spreading to lateral foot with puncture wounds, tenderness to palpation, white fluctuant, possible abscess, concerning for cellulitis versus osteomyelitis. ?Left big toe swelling and erythema spreading to mid dorsum foot with plantar puncture wound, tender to palpation, white fluctuant in lateral big toe, concerning for cellulitis versus osteomyelitis. NEUROLOGIC: awake; alert and oriented x4; cranial nerves II-XII grossly intact PSYCHIATRIC: appropriate mood and affect SKIN: warm, dry, normal color; no rashes Objective Labs 08/11/25 04:57 08/11/25 04:57 Labs: Laboratory Results - last 24 hr 08/10/25 08/10/25 08/10/25 11:29 12:04 15:11 WBC RBC Hgb Hct MCV MCH MCHC RDW Std Deviation Plt Count Neut % (Auto) Lymph % (Auto) [place] % (Auto) Eos % (Auto) Baso % (Auto) Neut # (Auto) Lymph # (Auto) [place] # (Auto) Eos # (Auto) Baso # (Auto) Immature Gran # (Auto) Absolute Nucleated RBC Immature Gran % Nucleated RBC % PT INR APTT Sodium Potassium Chloride Carbon Dioxide Anion Gap BUN Creatinine Estim Creat Clear Calc eGFR BUN/Creatinine Ratio Glucose Calculated Osmolality Calcium Corrected Calcium Phosphorus Magnesium Total Bilirubin AST ALT Alkaline Phosphatase Total Protein Albumin Globulin Albumin/Globulin Ratio Triglycerides Cholesterol LDL Cholesterol, Calc HDL Cholesterol Cholesterol/HDL Ratio Ur Random Creatinine 52 U Random Total Protein 36 H Ur Random Sodium 36.9 Ur Random Potassium 20 Ur Random Chloride 41.1 L Ur Random Urea Nitrogn 340.0 L Random Vancomycin Urine Opiates Screen Negative Urine Fentanyl Screen Negative Ur Barbiturates Screen Negative U Amphetamin/Meth Scrn Positive A U Benzodiazepines Scrn Negative U Cocaine Metab Screen Negative U Marijuana (THC) Screen Negative Hepatitis A IgM Ab Non Reactive Hep Bs Antigen Non Reactive Hep B Core IgM Ab Non Reactive Hepatitis C Antibody Non Reactive HIV 1&2 Antibody Rapid 08/10/25 08/11/25 15:40 04:57 WBC 14.2 H RBC 3.50 L Hgb 10.7 L Hct 32.2 L MCV 92 MCH 30.6 MCHC 33.2 RDW Std Deviation 46.6 H Plt Count 234 Neut % (Auto) 82 H Lymph % (Auto) 8 L [place] % (Auto) 9 Eos % (Auto) 0 Baso % (Auto) 0 Neut # (Auto) 11.6 H Lymph # (Auto) 1.2 [place] # (Auto) 1.3 H Eos # (Auto) 0.0 Baso # (Auto) 0.1 Immature Gran # (Auto) 0.06 H Absolute Nucleated RBC 0.00 Immature Gran % 0 Nucleated RBC % 0 PT 10.4 INR 1.0 APTT 32.5 Sodium 141 Potassium 4.0 Chloride 105 Carbon Dioxide 24.2 Anion Gap 12 BUN 25 H Creatinine 1.4 H D Estim Creat Clear Calc 35.1 L eGFR 57 L BUN/Creatinine Ratio 18 Glucose 158 H Calculated Osmolality 288 Calcium 9.7 Corrected Calcium 9.7 Phosphorus 3.8 Magnesium 1.8 Total Bilirubin 0.5 AST 18 ALT 13 Alkaline Phosphatase 85 Total Protein 6.7 Albumin 4.2 D Globulin 2.5 Albumin/Globulin Ratio 1.7 Triglycerides 71 Cholesterol 116 L LDL Cholesterol, Calc 53 HDL Cholesterol 49 Cholesterol/HDL Ratio 2.4 L Ur Random Creatinine U Random Total Protein Ur Random Sodium Ur Random Potassium Ur Random Chloride Ur Random Urea Nitrogn Random Vancomycin 11.4 Urine Opiates Screen Urine Fentanyl Screen Ur Barbiturates Screen U Amphetamin/Meth Scrn U Benzodiazepines Scrn U Cocaine Metab Screen U Marijuana (THC) Screen Hepatitis A IgM Ab Hep Bs Antigen Hep B Core IgM Ab Hepatitis C Antibody HIV 1&2 Antibody Rapid Non-Reactive Quality Measures Quality Measures VTE prophylaxis Assessment & Plan Assessment Current Active Medications: Generic Name Dose Route Start Last Admin Trade Name Freq PRN Reason Stop Dose Admin Acetaminophen 650 mg 08/10/25 14:29 Acetaminophen 325 Mg Tablet PO 09/09/25 14:28 Q6H PRN Fever >101.5 Dextrose 25 ml 08/10/25 14:43 Dextrose 50%-Water Inj 50 Ml Syringe IV 09/09/25 14:42 Q15MIN PRN BG 50-70 responsive npo pt Dextrose 50 ml 08/10/25 14:43 Dextrose 50%-Water Inj 50 Ml Syringe IV 09/09/25 14:42 Q15MIN PRN BG <50 OR BG <70 & pt unresponsive Docusate Sodium 100 mg 08/10/25 14:34 Docusate Sod 100 Mg Capsule PO 09/09/25 14:33 QDAY PRN CONSTIPATION Protocol Glucagon 1 mg 08/10/25 14:43 Glucagon Inj 1 Mg Vial IM Q15MIN PRN BG <70, and no IV access Heparin Sodium (Porcine) 5,000 unit 08/10/25 21:00 08/11/25 08:42 Heparin Sod Inj 5000 Unit/Ml Vial SC 08/24/25 20:59 5,000 unit Q12HR BO Administration Hydromorphone HCl 1 mg 08/10/25 14:34 Hydromorphone Inj 2 Mg/Ml Vial IVP 08/15/25 14:33 Q2H PRN PAIN SCALE 7-10 (Severe Clindamycin Phosphate 900 mg/ 50 mls @ 50 mls/hr 08/10/25 14:45 08/11/25 05:02 IV Miscellaneous Supplies IV 08/17/25 14:44 50 mls/hr Q8HR BO Administration Metronidazole 500 mg in 100 mls @ 200 mls/hr 08/10/25 22:00 08/11/25 05:58 Flagyl 500 Mg Iv IV 08/17/25 21:59 200 mls/hr Q8HR BO Administration Cefepime HCl 2 gm/ Sodium 50 mls @ 100 mls/hr 08/11/25 09:00 08/11/25 08:42 Chloride IV 08/18/25 08:59 100 mls/hr Q12HR BO Administration Insulin Human Lispro 0 unit 08/10/25 17:45 08/11/25 11:24 Insulin Lispro (Admelog) 1 Unit/0.01 Ml Unit SC 09/09/25 17:44 Not Given ACHS BO Protocol Nicotine 14 mg 08/11/25 09:00 08/11/25 08:43 Nicotine Patch 14 Mg/24 Hr Patch.Td24 TOP 09/10/25 08:59 14 mg QDAY BO Administration Ondansetron HCl 4 mg 08/10/25 14:29 Ondansetron Inj 2 Mg/Ml Inj 2 Ml IVP 09/09/25 14:28 Q6H PRN NAUSEA OR VOMITING Protocol Pharmacy Consult 1 each 08/11/25 09:00 Vancomycin Pharmacy To Dose 1 Each Each IV 09/10/25 08:59 QDAY PRN PROTOCOL Sennosides 1 tab 08/10/25 14:34 Senna Tablet PO 09/09/25 14:33 QDAY PRN constipation Protocol Tramadol HCl 50 mg 08/10/25 14:34 08/10/25 16:25 Tramadol Hcl 50 Mg Tablet PO 08/15/25 14:33 50 mg Q6HR PRN Administration PAIN SCALE 4-6 (Moderate Plan #Cellulitis right foot wounds # Osteomyelitis of left great toe and first metatarsal -? Cellulitis with subcutaneous gas and small focal bony erosion concerning osteomyelitis -? WBC increased 13.2-14.2, afebrile 97.5 -? MRI foot showed: Left foot - osteomyelitis ungual tuft of distal phalanx first digit and early osteomyelitis in the distal plantar aspect first metatarsal. Right foot - negative for osteomyelitis, negative for soft tissue abscess Plan: -? Blood culture on 08/10 no growth to date -? Continue clindamycin, vancomycin, cefepime, flagyl (started 08/10) -? Lactated ringer 1 L bolus -? Tramadol and Dilaudid for pain control as needed -? Consult surgery Dr. Andrea, appreciate recs - Consult ID Dr. Johns, appreciate recs #JUNO in the setting of septis, likely prerenal -resolving -? Creatinine of 2.4, from baseline of 1.2 -?Creatinine improved, back to baseline of 1.4 - Received 1 L bolus NS in ED. Additional bolus 1 L LR. Plan: -? Stop IV fluid -? Avoid further nephrotoxic agents -? Monitor renal function daily #Cachexia -? BMI of 15.2 in the setting of active smoker and homeless half-way, history of unprotected sex -? Denied recent weight loss, admitted to chronic weight loss -? UTOX positive amphetamine methamphetamine -? HIV and hepatitis panel negative -? CXR negative, COPD pattern Plan: -? Encourage oral intake - Control with diet -? Diet carbohydrate consistent #Diabetes Patient has history of diabetes. UA 4+ glucose. HA1c 6.8%. Not on medication.? Patient refuses insulin, stating that when he had insulins in senior living, he experienced blindness. ?Blood glucose 121 this morning. Plan: - Carb consistent diet - Consider other oral antidiabetics if blood glucose uncontrolled #Cough -? Reported coughing with black sputum intermittently, worsen when he goes to work in [employer] -? In the setting of chronic active smoker Plan: - Nicotine patch as needed -? Nebs as needed -?Pending PPD screening DVT prophylaxis: Heparin GI prophylaxis: None Diet: Carb consistent low Lines: PIV Code status: Full code Assessment and plan discussed with my attending physician Dr. Guillen and Dr. Rosenberg (PGY-2). Dr. Cid (PGY-1) ? administrative resident Attending Provider Attestation/Addendum I have discussed and was present for the essential components of the history, physical examination, diagnosis, and treatment plan with the resident. I agree with the patient's care as documented by the resident and amended herein by me. Yo Guillen DO. Although this document has been carefully reviewed, there may still be some phonetic and other typographical errors. These errors are purely grammatical due to imperfections in the software program and should not be construed in any way to compromise the substance of the patient's medical care during this visit. Patient seen and evaluated this AM. No acute events overnight, patient is homeless unfortunately and due to insurance, likely not a candidate for SNF. Patient is demonstrating osteomyelitis in his left great toe and possibly first metatarsal. Per infectious disease recommendations, since IV ceftriaxone, 2 g daily, p.o. doxycycline 100 mg twice daily and Flagyl 500 mg p.o. every 8 hours until September 27, 2025. This to be very difficult, will reach out to infectious disease to see if there is an oral option that would suffice for ceftriaxone as the patient has no placement option at this time.
--- NOTE | 2025-08-11 14:11 | ESPR_ITS ---
Subjective Subjective Interval history: 60 y/o who was on vanco/zosyn changed to cefepime/flagyl per primary team after <24hr of rx. cx are neg but also no fever. lupe noted that has improved. appears to be diabetic based on a1c of >5.7. no prior rx noted. may not need rx but may still be a contributing factor Exam Vital Signs Temp Pulse Resp BP Pulse Ox O2 Del Method 98.8 F 70 19 116/70 98 Room Air 08/11/25 11:08/11/25 11:25 08/11/25 11:25 08/11/25 11:25 08/11/25 11:08/11/25 11: Narrative Exam out for catheterization laboratory technician so can not seen. Objective - Internal Medicine Labs 08/11/25 04:57 08/11/25 04:57 Labs: Laboratory Results - last 24 hr 08/10/25 08/10/25 08/10/25 11:29 12:04 15:11 WBC RBC Hgb Hct MCV MCH MCHC RDW Std Deviation Plt Count Neut % (Auto) Lymph % (Auto) [place] % (Auto) Eos % (Auto) Baso % (Auto) Neut # (Auto) Lymph # (Auto) [place] # (Auto) Eos # (Auto) Baso # (Auto) Immature Gran # (Auto) Absolute Nucleated RBC Immature Gran % Nucleated RBC % PT INR APTT Sodium Potassium Chloride Carbon Dioxide Anion Gap BUN Creatinine Estim Creat Clear Calc eGFR BUN/Creatinine Ratio Glucose Calculated Osmolality Calcium Corrected Calcium Phosphorus Magnesium Total Bilirubin AST ALT Alkaline Phosphatase Total Protein Albumin Globulin Albumin/Globulin Ratio Triglycerides Cholesterol LDL Cholesterol, Calc HDL Cholesterol Cholesterol/HDL Ratio Ur Random Creatinine 52 U Random Total Protein 36 H Ur Random Sodium 36.9 Ur Random Potassium 20 Ur Random Chloride 41.1 L Ur Random Urea Nitrogn 340.0 L Random Vancomycin Urine Opiates Screen Negative Urine Fentanyl Screen Negative Ur Barbiturates Screen Negative U Amphetamin/Meth Scrn Positive A U Benzodiazepines Scrn Negative U Cocaine Metab Screen Negative U Marijuana (THC) Screen Negative Hepatitis A IgM Ab Non Reactive Hep Bs Antigen Non Reactive Hep B Core IgM Ab Non Reactive Hepatitis C Antibody Non Reactive HIV 1&2 Antibody Rapid 08/10/25 08/11/25 15:40 04:57 WBC 14.2 H RBC 3.50 L Hgb 10.7 L Hct 32.2 L MCV 92 MCH 30.6 MCHC 33.2 RDW Std Deviation 46.6 H Plt Count 234 Neut % (Auto) 82 H Lymph % (Auto) 8 L [place] % (Auto) 9 Eos % (Auto) 0 Baso % (Auto) 0 Neut # (Auto) 11.6 H Lymph # (Auto) 1.2 [place] # (Auto) 1.3 H Eos # (Auto) 0.0 Baso # (Auto) 0.1 Immature Gran # (Auto) 0.06 H Absolute Nucleated RBC 0.00 Immature Gran % 0 Nucleated RBC % 0 PT 10.4 INR 1.0 APTT 32.5 Sodium 141 Potassium 4.0 Chloride 105 Carbon Dioxide 24.2 Anion Gap 12 BUN 25 H Creatinine 1.4 H D Estim Creat Clear Calc 35.1 L eGFR 57 L BUN/Creatinine Ratio 18 Glucose 158 H Calculated Osmolality 288 Calcium 9.7 Corrected Calcium 9.7 Phosphorus 3.8 Magnesium 1.8 Total Bilirubin 0.5 AST 18 ALT 13 Alkaline Phosphatase 85 Total Protein 6.7 Albumin 4.2 D Globulin 2.5 Albumin/Globulin Ratio 1.7 Triglycerides 71 Cholesterol 116 L LDL Cholesterol, Calc 53 HDL Cholesterol 49 Cholesterol/HDL Ratio 2.4 L Ur Random Creatinine U Random Total Protein Ur Random Sodium Ur Random Potassium Ur Random Chloride Ur Random Urea Nitrogn Random Vancomycin 11.4 Urine Opiates Screen Urine Fentanyl Screen Ur Barbiturates Screen U Amphetamin/Meth Scrn U Benzodiazepines Scrn U Cocaine Metab Screen U Marijuana (THC) Screen Hepatitis A IgM Ab Hep Bs Antigen Hep B Core IgM Ab Hepatitis C Antibody HIV 1&2 Antibody Rapid Non-Reactive Assessment & Plan A&P Narrative deep infeciotn L foot with likely osteomyelitis of L foot by mri dm II with relative asthenia lupe with likely ckd will change to po doxy and po flagyl and iv rocephin 2gm/day thru 09/27 NOON. A flagyl and rocephin are not nephrotoxic and nor is doxy amputaiton would be definitive but is irreversible. no guarantees on rx of affected areas will see fridy if still here Time Spent With Patient Time: Total time spent is greater than 50% in coordination of care (as documented) at patient's floor/unit and/or counseling patient:
[2025-08-11] MEDS: cefTRIAXone/D5w 2gm 2 GM/50 ML BAG IV (14:45)
--- NOTE | 2025-08-11 15:43 | PC.NURSE ---
1500 patient in IR for picc line procedure 1505 consent signed with telephone entry level sales consultant. Patient placed in IR bed and connected to vital signs monitors. 1515 Dr. Neal at bedside assessing patient's vein, unable? to find good vein in right arm, asked if we can call hospitalist to see if we can do? picc line thought IV in left AC. [address] Guillen hospitalist who stated it is ok to use left AC IV for picc line insertion, will prep patient for left picc line insertion 1532 Patient prepped and draped for left arm picc line insertion, received call from Charge nurse Zandra who stated procedure has been cancelled by Dr Mckinnon. Dr. Neal at bedside and notified of cancellation, stated to wait for him to talk to glass furnace tender to verify cancellation. 1535 Dr. Neal spoke to Charge nurse Zandra and confirmed procedure cancelled, will place patient in rava and transfer back to room 369 1543 Report has been given to Michael BURTON who stated patient did not need picc line since patient will be discharged to a place that cannot provide picc line care. Patient placed in gurava, transferred back to room 369 with tele box.
--- NOTE | 2025-08-11 18:03 | PD.SURCONS ---
HPI Consult details Consult date: 08/11/25 Reason for consultation narrative: The patient was seen in consultation because of osteomyelitis of the great toe with abscess History of present illness: The patient was admitted because of swelling over the left great toe. Meds Home Medications and Allergies Allergies Allergy/AdvReac Type Severity Reaction Status Date / Time No Known Allergies Allergy Verified 08/11/25 14:51 Exam Vital Signs Temp Pulse Resp BP Pulse Ox O2 Del Method 98.8 F 85 14 130/76 98 Room Air 08/11/25 11:25 08/11/25 15:40 08/11/25 15:40 08/11/25 15:40 08/11/25 15:40 08/11/25 15:40 Assessment & Plan Additional Assessment Additional comments: Impression: Patient has an abscess with fluctuation over the tip of the left great toe Plan Plan: Patient will require long-term IV antibiotics for the osteomyelitis as suggested by the infectious disease. Meanwhile I will arrange for incision and drainage of the abscess under anesthesia in the hospital tomorrow.
[2025-08-11] MEDS: DOXYCYCLINE 100 MG TABLET PO (20:17)
[2025-08-11] MEDS: INSULIN LISPRO (AdmeLOG) 1 UNIT/0.01 ML UNIT SC (20:26)
[2025-08-12] VITALS (12 sets, daily range): BP systolic 108–150; BP diastolic 69–88; PULSE 84–102; RESP 16–20; TEMP 36.2–37.6; O2SAT 97–100
[2025-08-12 06:24] LABS: Basophils # (Auto) 0.1 Thou/mm3 (0.0-0.2); Basophils % (Auto) 1 % (0-2.5); Eosinophils # (Auto) 0.1 Thou/mm3 (0.0-0.5); Eosinophils % (Auto) 1 % (0-10); Hematocrit 31.5 % (41.0-53.0); Hemoglobin 10.9 g/dL (13.5-16.0); Immature Granulocytes Auto 0.14 Thou/mm3 (0.00-0.00); Lymphocytes # (Auto) 1.7 Thou/mm3 (1.0-4.8); Lymphocytes % (Auto) 10 % (10-50); Mean Corpuscular HGB Conc 34.6 g/dl (31.0-37.0); Mean Corpuscular Hemoglobin 31.6 pg (25.0-35.0); Mean Corpuscular Volume 91 fL (80-100); Monocytes # (Auto) 1.4 Thou/mm3 (0.0-0.8); Monocytes % (Auto) 8 % (0-12); Neutrophils # (Auto) 13.5 Thou/mm3 (1.8-7.7); Neutrophils % (Auto) 80 % (37-80); Nucleated Red Blood Cell # 0.00 Thou/mm3 (0.00-0.00); Nucleated Red Blood Cell % 0 /100 WBC (0); Platelet Count 218 Thou/mm3 (140-440); RDW Standard Deviation 45.8 fL (35.1-43.9); Red Blood Count 3.45 Miln/mm3 (4.50-5.90); White Blood Count 16.9 Thou/mm3 (3.8-10.6)
[2025-08-12 06:56] LABS: Alanine Aminotransferase 12 U/L (10-49); Albumin, Serum 3.9 gm/dL (3.4-4.8); Albumin/Globulin Ratio 1.3 (1.2-2.2); Alkaline Phosphatase 84 U/L (46-116); Anion Gap 10 (7-16); Aspartate Amino Transferase 21 U/L (0-34); BUN/Creatinine Ratio 23 Ratio (12-20); Bilirubin,Total 0.4 mg/dL (0.3-1.2); Blood Urea Nitrogen 25 mg/dL (9-23); Calcium 9.5 mg/dL (8.3-10.6); Calcium (Corrected) 9.6 mg/dL (8.5-10.1); Carbon Dioxide 25.4 mMol/L (20.0-31.0); Chloride 103 mMol/L (98-107); Creatinine (Component) 1.1 mg/dL (0.6-1.3); Estimated Creatinine Clearance 44.7 mL/min (>60); Globulin 3.0 gm/dL (2.3-3.5); Glucose 81 mg/dL (74-106); Magnesium 1.6 mg/dL (1.6-2.6); Osmolality,Calculated 279 (275-295); Phosphorous 2.7 mg/dL (2.4-5.1); Potassium 4.2 mMol/L (3.4-5.1); Sodium 138 mMol/L (136-145); Total Protein 6.9 gm/dL (5.7-8.2); eGFR > 60 See Note
[2025-08-12] MEDS: NICOTINE PATCH 14 MG/24 HR PATCH.TD24 TOP (08:42)
[2025-08-12] MEDS: DOXYCYCLINE 100 MG TABLET PO ×2 (08:45→20:18)
[2025-08-12] MEDS: cefTRIAXone/D5w 2gm 2 GM/50 ML BAG IV (09:48)
--- NOTE | 2025-08-12 09:59 | PC.SS ---
SS has sent inquiry to the local SNF using [employer]. Pt will require IV antibiotic, Rocephin 2grm until Sep 27, 2025 1X day. Pt is from [facility].
--- NOTE | 2025-08-12 11:09 | PC.SS ---
SS met with pt to provide him with d/c options to SNF. Pt was accepted to [facility] and [facility]. Kathi from [facility] did an onsite. Patient's choice is [facility]. [facility] and [facility] declined. [facility] was still reviewing. [facility] did not respond. SS spoke to Nhi from [employer] they will start insurance authorization once PASRR assessment is received.
--- NOTE | 2025-08-12 12:13 | EKG_ITS ---
[facility] Test Date: 2025-08-12 Pat Name: GRADY ORTIZ [facility] Buck Presser: STEFANIE : 1965 Requested By: Duarte Martinez Order Number: [id number] Reading MD: Duarte Martinez Measurements Intervals [place] Rate: 91 P: 77 NH: 142 QRS: 116 QRSD: 152 T: 53 QT: 401 QTc: 495 Interpretive Statements SINUS RHYTHM POSSIBLE RIGHT ATRIAL ENLARGEMENT RIGHT BUNDLE BRANCH BLOCK LEFT POSTERIOR FASCICULAR BLOCK No previous ECG available for comparison /[id number]/S0/[id number]
--- NOTE | 2025-08-12 12:38 | PC.SS ---
SS has sent PASRR using [employer].
--- NOTE | 2025-08-12 12:54 | PC.SS ---
Late note 08-12-25: SS met with patient regarding his d/c plan. Pt is alert/oriented. Pt was admitted for B/L Foot Wound. Pt confirmed demographic and contact information is correct on facesheet. Pt states he is from the [facility]. Prior to being hospitalized pt ambulates independently without assistance or DME. Pt is ok with all ADLs. Patient?s pharmacy [facility] choice [facility] [address] [facility]. Pt named his sister, Rosibel Golden or his son, Дмитрий Golden medical decision maker if unable. Patient's choice is to return to [facility] upon dc. Pt has shirt, sweater, pants, and shoes. Pt followed up with PCP 2 months ago. D/C plan: Return [facility] Next of Kin: Rosibel Golden, sister, phone# [phone] or Дмитрий Golden, son, phone# [phone] PCP: [facility] on [address] Address: Correct on facesheet
--- NOTE | 2025-08-12 12:59 | ESOP_ITS ---
Date of Procedure 08/12/25 Pre Op Diagnosis Abscess great toe Abscess right foot on the mid portion of the solar aspect Post Op Diagnosis Same Procedure 1. Incision and drainage of the abscess left great toe 2. Incision and drainage of the abscess right midfoot on the plantar aspect Findings Patient is found to have these 2 collection associated with cellulitis and required amputation patient also had osteomyelitis of the left great toe Procedure Description The patient was brought to the operating room the left great toe was anesthet ized by the anesthesiologist with digital block using lidocaine. Then the both the feet were washed with Betadine solution and draped. Timeout was performed. I approached the left big toe first. I made an incision and purulent material came out which was cultured. Then I did a debridement to clean all the surrounding tissues. Wound was dressed with fluff and Kerlix roll Then attention was turned onto the right foot and at the midportion of the solar aspect of the right foot there was a necrotic area. Upon excising that once again purulent material came out which was cultured. There was considerable amount of cellulitis for the right foot as a result of this purulent material. While doing this procedure patient was given some propofol to do the procedure under MAC completely. Both the wound was dressed the patient tolerated the procedure well Anesthesia MAC and local Pathology / specimen None Estimated Blood Loss 10 Surgeon Opal Andrea MD Surgical Staff Operation Date: 08/12/25 12:00 Case Staff RECORDS AND TAPE RECORDINGS ENGINEER: Duarte Root RN First Assistant: Triny Cramer
--- NOTE | 2025-08-12 13:03 | SUR.PHASEI ---
1303:Pt. AAOx4, vitals stable, breathing unlabored, no complaint of pain or nausea, dressing to bilateral feet less than 3 seconds, bilateral popliteal pulses strong and regular, report received from Jordon HERNANDEZ and Hayley BURTON.
--- NOTE | 2025-08-12 13:35 | SUR.PHASEI ---
1335: Pt. AAOx4, vitals stable, breathing unlabored, no complaint of pain or nausea, dressing to bilateral feet CDI, no active bleed noted, pt. tolerated sips of juice well, gave report to Triny BURTON prior to transfer to room 369.
--- NOTE | 2025-08-12 14:05 | ESPR_ITS ---
<Statement entered by Dajuan Rosenberg MD - 08/12/25 15:45> Patient seen and examined at bedside. I discussed and supervised with the intern architect physician who took care of this patient. I personally saw and examined the patient. I agree with most of the assessment and plan. Plan of care discussed with attending Dr. Guillen. Dajuan Rosenberg MD PGY-2 Documentation for date of: 08/12/25 Subjective Subjective Interval history: Overnight patient was given tramadol for shoulder pain. Patient seen and examined by bedside. Endorsed pain on left foot worse than right, hurt too much to wiggle toes. Dr. Andrea performed I&D bilateral foot this AM, pending culture. ID, Dr. Johns, consulted, appreciated recs. Antibiotics regime is currently Rocephine 2g IV qd, Doxycycline 100mg PO BID, Flagyl 500mg TID. assistant front office manager is looking into possible SNF placement. PICC line ordered. Exam Vital Signs Temp Pulse Resp BP Pulse Ox O2 Del Method O2 Flow Rate 97.8 F 91 19 133/86 H 100 Room Air 4 08/12/25 13:32 08/12/25 13:32 08/12/25 13:32 08/12/25 13:32 08/12/25 13:32 08/12/25 07:21 08/12/25 13:08 Narrative Exam GENERAL APPEARANCE: alert and oriented x 4, cachexia, no acute distress HEENT: Temporal wasting, atraumatic; constricted pupil bilaterally; EOMI; mucous membranes pink, moist; oropharynx clear NECK: Supple LUNGS: Distant breath sounds bilaterally HEART: Regular rate, regular rhythm ABDOMEN: non distended; normal BS; soft, no tenderness, no guarding, no rebound; no masses, no organomegaly, no hernia EXTREMITIES: Right plantar erythema spreading to lateral foot with puncture wounds, tenderness to palpation, white fluctuant, possible abscess, concerning for cellulitis versus osteomyelitis. ?Left big toe swelling and erythema spreading to mid dorsum foot with plantar puncture wound, tender to palpation, white fluctuant in lateral and medial big toe, concerning for cellulitis versus osteomyelitis. NEUROLOGIC: awake; alert and oriented x4; cranial nerves II-XII grossly intact PSYCHIATRIC: appropriate mood and affect SKIN: warm, dry, normal color; no rashes Objective Labs 08/12/25 05:47 08/12/25 05:47 Labs: Laboratory Results - last 24 hr 08/12/25 05:47 WBC 16.9 H RBC 3.45 L Hgb 10.9 L Hct 31.5 L MCV 91 MCH 31.6 MCHC 34.6 RDW Std Deviation 45.8 H Plt Count 218 Neut % (Auto) 80 Lymph % (Auto) 10 [place] % (Auto) 8 Eos % (Auto) 1 Baso % (Auto) 1 Neut # (Auto) 13.5 H Lymph # (Auto) 1.7 [place] # (Auto) 1.4 H Eos # (Auto) 0.1 Baso # (Auto) 0.1 Immature Gran # (Auto) 0.14 H Absolute Nucleated RBC 0.00 Immature Gran % 1 H Nucleated RBC % 0 Sodium 138 Potassium 4.2 Chloride 103 Carbon Dioxide 25.4 Anion Gap 10 BUN 25 H Creatinine 1.1 Estim Creat Clear Calc 44.7 L eGFR > 60 BUN/Creatinine Ratio 23 H Glucose 81 D Calculated Osmolality 279 Calcium 9.5 Corrected Calcium 9.6 Phosphorus 2.7 Magnesium 1.6 Total Bilirubin 0.4 AST 21 ALT 12 Alkaline Phosphatase 84 Total Protein 6.9 Albumin 3.9 Globulin 3.0 Albumin/Globulin Ratio 1.3 Quality Measures Quality Measures VTE prophylaxis Assessment & Plan Assessment Current Active Medications: Generic Name Dose Route Start Last Admin Trade Name Freq PRN Reason Stop Dose Admin Acetaminophen 650 mg 08/10/25 14:29 Acetaminophen 325 Mg Tablet PO 09/09/25 14:28 Q6H PRN Fever >101.5 Dextrose 25 ml 08/10/25 14:43 Dextrose 50%-Water Inj 50 Ml Syringe IV 09/09/25 14:42 Q15MIN PRN BG 50-70 responsive npo pt Dextrose 50 ml 08/10/25 14:43 Dextrose 50%-Water Inj 50 Ml Syringe IV 09/09/25 14:42 Q15MIN PRN BG <50 OR BG <70 & pt unresponsive Docusate Sodium 100 mg 08/10/25 14:34 Docusate Sod 100 Mg Capsule PO 09/09/25 14:33 QDAY PRN CONSTIPATION Protocol Doxycycline Hyclate 100 mg 08/11/25 21:00 08/12/25 08:45 Doxycycline 100 Mg Tablet PO 09/27/25 12:00 100 mg BID BO Administration Glucagon 1 mg 08/10/25 14:43 Glucagon Inj 1 Mg Vial IM Q15MIN PRN BG <70, and no IV access Heparin Sodium (Porcine) 5,000 unit 08/10/25 21:00 08/12/25 08:46 Heparin Sod Inj 5000 Unit/Ml Vial SC 08/24/25 20:59 Not Given Q12HR BO Hydromorphone HCl 1 mg 08/10/25 14:34 Hydromorphone Inj 2 Mg/Ml Vial IVP 08/15/25 14:33 Q2H PRN PAIN SCALE 7-10 (Severe Ceftriaxone Sodium/Dextrose 2 gm in 50 mls @ 100 mls/hr 08/11/25 14:17 08/12/25 09:48 Rocephin/D5w 2gm IV 08/18/25 14:16 100 mls/hr QDAY BO Administration Insulin Human Lispro 0 unit 08/10/25 17:45 08/12/25 13:41 Insulin Lispro (Admelog) 1 Unit/0.01 Ml Unit SC 09/09/25 17:44 Not Given ACHS [facility] Protocol Metronidazole 500 mg 08/11/25 22:00 08/12/25 13:59 Metronidazole 250 Mg Tablet PO 09/27/25 12:00 500 mg TID BO Administration Nicotine 14 mg 08/11/25 09:00 08/12/25 08:42 Nicotine Patch 14 Mg/24 Hr Patch.Td24 TOP 09/10/25 08:59 14 mg QDAY BO Administration Ondansetron HCl 4 mg 08/10/25 14:29 Ondansetron Inj 2 Mg/Ml Inj 2 Ml IVP 09/09/25 14:28 Q6H PRN NAUSEA OR VOMITING Protocol Sennosides 1 tab 08/10/25 14:34 Senna Tablet PO 09/09/25 14:33 QDAY PRN constipation Protocol Tramadol HCl 50 mg 08/10/25 14:34 08/11/25 20:26 Tramadol Hcl 50 Mg Tablet PO 08/15/25 14:33 50 mg Q6HR PRN Administration PAIN SCALE 4-6 (Moderate Plan #Cellulitis right foot wounds # Osteomyelitis of left great toe and first metatarsal - Cellulitis with subcutaneous gas and small focal bony erosion concerning osteomyelitis - WBC increased 14.2-16.9, afebrile 97.5 - MRI foot showed: Left foot - osteomyelitis ungual tuft of distal phalanx first digit and early osteomyelitis in the distal plantar aspect first metatarsal. Right foot - negative for osteomyelitis, negative for soft tissue abscess Plan: - Blood culture on 08/10 no growth to date - Pending wound culture status post I&D by Dr. Andrea - Continue Rocephine 2g qd Doxy 100mg PO BID Flagyl 500mg TID(started 08/11) - Consult ID Dr. Johns, appreciate recs - PICC line placement, with d/c planning to SNF [facility] in the setting of septis, likely prerenal -resolving - Creatinine of 2.4, from baseline of 1.2 - Creatinine improved, back to baseline of 1.4 - Received 1 L bolus NS in ED. Additional bolus 1 L LR. Plan: - Stop IV fluid - Avoid further nephrotoxic agents - Monitor renal function daily #Cachexia - BMI of 15.2 in the setting of active smoker and [facility], history of unprotected sex - Denied recent weight loss, admitted to chronic weight loss - UTOX positive amphetamine methamphetamine - HIV and hepatitis panel negative - CXR negative, COPD pattern Plan: - Encourage oral intake - Control with diet - Diet carbohydrate consistent #Diabetes Patient has history of diabetes. UA 4+ glucose. HA1c 6.8%. Not on medication. Patient refuses insulin, stating that when he had insulins in group home, he experienced blindness. Blood glucose 121 this morning. Plan: - Carb consistent diet - Consider other oral antidiabetics if blood glucose uncontrolled #Cough - Reported coughing with black sputum intermittently, worsen when he goes to work in [place] - In the setting of chronic active smoker Plan: - Nicotine patch as needed - Nebs as needed - Pending PPD screening DVT prophylaxis: Heparin GI prophylaxis: None Diet: Carb consistent low Lines: PIV Code status: Full code Assessment and plan discussed with my attending physician Dr. Guillen and Dr. Rosenberg (PGY-2). Dr. Cid (PGY-1) ? resident care provider Attending Provider Attestation/Addendum I have discussed and was present for the essential components of the history, physical examination, diagnosis, and treatment plan with the resident. I agree with the patient's care as documented by the resident and amended herein by me. Yo Guillen DO. Although this document has been carefully reviewed, there may still be some phonetic and other typographical errors. These errors are purely grammatical due to imperfections in the software program and should not be construed in any way to compromise the substance of the patient's medical care during this visit. Patient seen and evaluated this AM. Stable, patient afebrile. Patient scheduled for I&D today of his for suspected abscess, will continue ceftriaxone 2 g daily, doxycycline 100 mg twice daily and Flagyl 500 mg every 8 hours until 27 September 2025. A PICC line has also been ordered for long-term IV antibiotics considering the patient is eligible for SNF placement per social work. Likely DC in 1 to 2 days pending clinical improvement.
[2025-08-12] MEDS: INSULIN LISPRO (AdmeLOG) 1 UNIT/0.01 ML UNIT SC ×2 (17:45→20:19)
[2025-08-12] MEDS: HYDROmorphone INJ 2 MG/ML VIAL 1 MG IVP ×2 (17:46→21:49)
[2025-08-12] MEDS: HEPARIN SOD INJ 5000 UNIT/ML VIAL SC (20:21)
[2025-08-13] VITALS (12 sets, daily range): BP systolic 102–118; BP diastolic 62–78; PULSE 69–88; RESP 16–96; TEMP 36.4–36.6; O2SAT 96–99
[2025-08-13] MEDS: HYDROmorphone INJ 2 MG/ML VIAL 1 MG IVP ×4 (01:51→22:04)
[2025-08-13 06:05] LABS: Basophils # (Auto) 0.1 Thou/mm3 (0.0-0.2); Basophils % (Auto) 0 % (0-2.5); Eosinophils # (Auto) 0.1 Thou/mm3 (0.0-0.5); Eosinophils % (Auto) 1 % (0-10); Hematocrit 32.5 % (41.0-53.0); Hemoglobin 10.8 g/dL (13.5-16.0); Immature Granulocytes Auto 0.15 Thou/mm3 (0.00-0.00); Lymphocytes # (Auto) 1.8 Thou/mm3 (1.0-4.8); Lymphocytes % (Auto) 10 % (10-50); Mean Corpuscular HGB Conc 33.2 g/dl (31.0-37.0); Mean Corpuscular Hemoglobin 30.9 pg (25.0-35.0); Mean Corpuscular Volume 93 fL (80-100); Monocytes # (Auto) 1.2 Thou/mm3 (0.0-0.8); Monocytes % (Auto) 7 % (0-12); Neutrophils # (Auto) 14.3 Thou/mm3 (1.8-7.7); Neutrophils % (Auto) 81 % (37-80); Nucleated Red Blood Cell # 0.00 Thou/mm3 (0.00-0.00); Nucleated Red Blood Cell % 0 /100 WBC (0); Platelet Count 296 Thou/mm3 (140-440); RDW Standard Deviation 46.5 fL (35.1-43.9); Red Blood Count 3.50 Miln/mm3 (4.50-5.90); White Blood Count 17.6 Thou/mm3 (3.8-10.6)
[2025-08-13 06:38] LABS: Alanine Aminotransferase 9 U/L (10-49); Albumin, Serum 3.9 gm/dL (3.4-4.8); Albumin/Globulin Ratio 1.4 (1.2-2.2); Alkaline Phosphatase 90 U/L (46-116); Anion Gap 8 (7-16); Aspartate Amino Transferase 13 U/L (0-34); BUN/Creatinine Ratio 26 Ratio (12-20); Bilirubin,Total 0.4 mg/dL (0.3-1.2); Blood Urea Nitrogen 31 mg/dL (9-23); Calcium 9.2 mg/dL (8.3-10.6); Calcium (Corrected) 9.3 mg/dL (8.5-10.1); Carbon Dioxide 28.3 mMol/L (20.0-31.0); Chloride 100 mMol/L (98-107); Creatinine (Component) 1.2 mg/dL (0.6-1.3); Estimated Creatinine Clearance 41.0 mL/min (>60); Globulin 2.7 gm/dL (2.3-3.5); Glucose 138 mg/dL (74-106); Magnesium 1.8 mg/dL (1.6-2.6); Osmolality,Calculated 280 (275-295); Phosphorous 3.0 mg/dL (2.4-5.1); Potassium 5.1 mMol/L (3.4-5.1); Sodium 136 mMol/L (136-145); Total Protein 6.6 gm/dL (5.7-8.2); eGFR > 60 See Note
--- NOTE | 2025-08-13 08:54 | PC.SS ---
Follow up note: Cultures pending. On IV antibiotic. PICC line needed. Pt will require intermediate designer IV antibiotic, Rocephin 2grm 1 X day until Sep 27, 2025. Tyrese Torres is working on obtaining insurance authorization.
[2025-08-13] MEDS: cefTRIAXone/D5w 2gm 2 GM/50 ML BAG IV (09:32)
[2025-08-13] MEDS: DOXYCYCLINE 100 MG TABLET PO ×2 (09:32→21:48)
[2025-08-13] MEDS: HEPARIN SOD INJ 5000 UNIT/ML VIAL SC ×2 (09:32→21:49)
--- NOTE | 2025-08-13 09:59 | PD.IDPROG ---
Subjective Subjective Interval history: toe surg noted 08/12 may have pvd has dm Exam Vital Signs Temp Pulse Resp BP Pulse Ox O2 Del Method O2 Flow Rate 97.5 F 74 20 102/76 96 Room Air 4 08/13/25 07:37 08/13/25 07:37 08/13/25 07:37 08/13/25 07:37 08/13/25 07:37 08/13/25 07:37 08/12/25 13:08 Narrative Exam exam benign. wound care addressing both feet today. L big toe not amputated Objective - Internal Medicine Labs 08/13/25 05:21 08/13/25 05:21 Labs: Laboratory Results - last 24 hr 08/13/25 05:21 WBC 17.6 H RBC 3.50 L Hgb 10.8 L Hct 32.5 L MCV 93 MCH 30.9 MCHC 33.2 RDW Std Deviation 46.5 H Plt Count 296 D Neut % (Auto) 81 H Lymph % (Auto) 10 [place] % (Auto) 7 Eos % (Auto) 1 Baso % (Auto) 0 Neut # (Auto) 14.3 H Lymph # (Auto) 1.8 [place] # (Auto) 1.2 H Eos # (Auto) 0.1 Baso # (Auto) 0.1 Immature Gran # (Auto) 0.15 H Absolute Nucleated RBC 0.00 Immature Gran % 1 H Nucleated RBC % 0 Sodium 136 Potassium 5.1 D Chloride 100 Carbon Dioxide 28.3 Anion Gap 8 BUN 31 H Creatinine 1.2 Estim Creat Clear Calc 41.0 L eGFR > 60 BUN/Creatinine Ratio 26 H Glucose 138 H D Calculated Osmolality 280 Calcium 9.2 Corrected Calcium 9.3 Phosphorus 3.0 Magnesium 1.8 Total Bilirubin 0.4 AST 13 ALT 9 L Alkaline Phosphatase 90 Total Protein 6.6 Albumin 3.9 Globulin 2.7 Albumin/Globulin Ratio 1.4 Assessment & Plan A&P Narrative deep infeciotn L foot with likely osteomyelitis of L foot by mri and surgery dm II. a1c 6,8. lupe normalized with support so far. will change to po doxy alone for now doxy 100 po id may adjust once s available to vanco or ancef or rocephin alone for remainder of rx thru 09/27 amputation would be definitive but is irreversible. no guarantees on rx of affected areas. ok to refer to vascular if pvd documented by imaging no need for outpt id f/u after release. I can not see him in f/u will see next saturday if still here I will otherwise be away for a few days to see my brother in another state who is ill Time Spent With Patient Time: Total time spent is greater than 50% in coordination of care (as documented) at patient's floor/unit and/or counseling patient:
--- NOTE | 2025-08-13 10:01 | XR_ITS ---
Examination: Arterial duplex lower extremity study. Date and time of exam: August 13, 2025, 10:30 a.m. INDICATIONS: Nonhealing wounds of both feet beginning 2 years ago Findings: Duplex sonographic imaging of the lower extremity arteries using B-mode/Thomson scale imaging and Doppler spectral analysis and color flow. Ankle brachial indices have been recorded. Right common femoral artery demonstrates triphasic flow. Right superficial femoral artery demonstrates triphasic flow. Right popliteal artery demonstrates triphasic flow. Right posterior tibial artery demonstrated triphasic flow. Right ankle/brachial index is 1.1. Left common femoral artery demonstrates triphasic flow. Left superficial femoral artery demonstrates triphasic flow. Left popliteal artery demonstrates biphasic flow. Left posterior tibial artery demonstrated biphasic flow. Left ankle/brachial index is 0.8. Impression: Significant left lower extremity peripheral obstructive arterial disease Consider correlation with CTA abdominal aorta iliofemoral runoff post intravenous contrast follow-up
--- NOTE | 2025-08-13 10:40 | ESCONSULT_ITS ---
RE: GRADY ORTIZ : 1965 DATE OF CONSULTATION: 08/13/2025 REFERRING PHYSICIAN: Hospitalist team. REASON FOR CONSULTATION: Osteomyelitis of the left big toe with possible abscess in the right foot as well. HISTORY OF PRESENT ILLNESS: Patient is an unfortunate 60-year-old man who lives independently by himself and has only diabetes. PAST SURGICAL HISTORY: Includes only the left foot surgery this admission ALLERGIES: NONE NOTED. IMMUNIZATIONS: None available. He speaks primarily Kinyarwanda. He says he has had 3 COVID vaccines but has not had any others. FAMILY HISTORY: Negative. SOCIAL HISTORY: He lives alone. There is no smoking, alcohol, or other or drug use. His drug screen is positive for amphetamine now. I did not ask him what type of work he does. PHYSICAL EXAMINATION: The exam shows a packed ulcer of the right foot and the prior ulcer of the left big toe drained with imaging suggestive of osteomyelitis. The toe does not appear to be amputated on the left. Amputation would be definitive but there is infection in the right foot which there may be as well and antibiotics will likely take care of that. It does appear to be a Gram stain from the left big toe from the 6th that shows GPCs, so we will use that to guide us as the blood cultures are negative at 48 hours. Patient denies any fevers or chills. His exam is otherwise benign. His circulation does appear to be somewhat impaired as he is not bleeding a great deal. So we will check his circulation. Unfortunately with his diabetes which he admits to and A1c of 6.8, he may have some peripheral vascular disease as well. He needs to be on doxycycline through 09/27. He may need to adjust that based on the cultures from surgery yesterday. I will check on him in about a week but I will be gone to see by brother, so feel free to make the changes based on sensitivities. The cultures of the abscess from the left great toe drained yesterday shows Staph aureus and shows there is doxycycline sensitivity, so you can change him to Rocephin alone 2 g a day through 09/27. If unfortunately MRSA is found you may need to change him to vancomycin and give that through 09/27 as well. I have ordered a Doppler study, he may need vascular follow up if that is abnormal. DT: 10:16:14 TT: 10:39:00 Ref: [id number] - TID: [id number] MTDD
[2025-08-13 11:23] LABS: INR 1.1 (0.9-1.3); Partial Thromboplastin Time 32.7 Seconds (22.0-36.0); Prothrombin Time 11.5 Seconds (9.0-12.2)
--- NOTE | 2025-08-13 11:23 | ESPR_ITS ---
<Statement entered by Dajuan Rosenberg MD - 08/13/25 16:35> Patient seen and examined at bedside. I discussed and supervised with the information technology internship physician who took care of this patient. I personally saw and examined the patient. I agree with most of the assessment and plan. Plan of care discussed with attending Dr. Guillen. Dajuan Rosenberg MD PGY-2 Documentation for date of: 08/13/25 Subjective Subjective Interval history: 60 years old male admitted for left great toe and first metatarsal osteomyelitis and right plantar cellulitis status post I&D with Dr. Blanc, currently on Flagyl, doxycycline, Rocephin, ID and wound care following. Patient is tentatively excepted to [facility], pending insurance clearance. Patient felt much better today after I&D, no pain appreciated. Exam Vital Signs Temp Pulse Resp BP Pulse Ox O2 Del Method O2 Flow Rate 97.5 F 69 18 102/76 96 Room Air 4 08/13/25 07:37 08/13/25 11:14 08/13/25 11:14 08/13/25 07:37 08/13/25 07:37 08/13/25 07:37 08/12/25 13:08 Narrative Exam GENERAL APPEARANCE: alert and oriented x 4, cachexia, no acute distress HEENT: Temporal wasting, atraumatic; constricted pupil bilaterally; EOMI; mucous membranes pink, moist; oropharynx clear NECK: Supple LUNGS: Distant breath sounds bilaterally HEART: Regular rate, regular rhythm ABDOMEN: non distended; normal BS; soft, no tenderness, no guarding, no rebound; no masses, no organomegaly, no hernia EXTREMITIES: Right mid foot wrapped in Kerlix, mild erythema, no swelling, no drainage. Left front foot wrapped in Kerlix, no drainage. NEUROLOGIC: awake; alert and oriented x4; cranial nerves II-XII grossly intact PSYCHIATRIC: appropriate mood and affect SKIN: warm, dry, normal color; no rashes Objective Labs 08/13/25 05:21 08/13/25 05:21 Labs: Laboratory Results - last 24 hr 08/13/25 05:21 WBC 17.6 H RBC 3.50 L Hgb 10.8 L Hct 32.5 L MCV 93 MCH 30.9 MCHC 33.2 RDW Std Deviation 46.5 H Plt Count 296 D Neut % (Auto) 81 H Lymph % (Auto) 10 [place] % (Auto) 7 Eos % (Auto) 1 Baso % (Auto) 0 Neut # (Auto) 14.3 H Lymph # (Auto) 1.8 [place] # (Auto) 1.2 H Eos # (Auto) 0.1 Baso # (Auto) 0.1 Immature Gran # (Auto) 0.15 H Absolute Nucleated RBC 0.00 Immature Gran % 1 H Nucleated RBC % 0 Sodium 136 Potassium 5.1 D Chloride 100 Carbon Dioxide 28.3 Anion Gap 8 BUN 31 H Creatinine 1.2 Estim Creat Clear Calc 41.0 L eGFR > 60 BUN/Creatinine Ratio 26 H Glucose 138 H D Calculated Osmolality 280 Calcium 9.2 Corrected Calcium 9.3 Phosphorus 3.0 Magnesium 1.8 Total Bilirubin 0.4 AST 13 ALT 9 L Alkaline Phosphatase 90 Total Protein 6.6 Albumin 3.9 Globulin 2.7 Albumin/Globulin Ratio 1.4 Quality Measures Quality Measures VTE prophylaxis Assessment & Plan Assessment Current Active Medications: Generic Name Dose Route Start Last Admin Trade Name Freq PRN Reason Stop Dose Admin Acetaminophen 650 mg 08/10/25 14:29 Acetaminophen 325 Mg Tablet PO 09/09/25 14:28 Q6H PRN Fever >101.5 Hydrocodone Bitart/Acetaminophen 1 tab 08/12/25 14:27 Hydrocodone/Apap 5/325 Tablet PO 08/17/25 14:26 Q4HR PRN PAIN SCALE 4-6 (Moderate Dextrose 25 ml 08/10/25 14:43 Dextrose 50%-Water Inj 50 Ml Syringe IV 09/09/25 14:42 Q15MIN PRN BG 50-70 responsive npo pt Dextrose 50 ml 08/10/25 14:43 Dextrose 50%-Water Inj 50 Ml Syringe IV 09/09/25 14:42 Q15MIN PRN BG <50 OR BG <70 & pt unresponsive Docusate Sodium 100 mg 08/10/25 14:34 Docusate Sod 100 Mg Capsule PO 09/09/25 14:33 QDAY PRN CONSTIPATION Protocol Doxycycline Hyclate 100 mg 08/13/25 21:00 Doxycycline 100 Mg Tablet PO 08/16/25 12:00 BID BO Glucagon 1 mg 08/10/25 14:43 Glucagon Inj 1 Mg Vial IM Q15MIN PRN BG <70, and no IV access Heparin Sodium (Porcine) 5,000 unit 08/10/25 21:00 08/13/25 09:32 Heparin Sod Inj 5000 Unit/Ml Vial SC 08/24/25 20:59 5,000 unit Q12HR BO Administration Hydromorphone HCl 1 mg 08/12/25 18:00 08/13/25 06:10 Hydromorphone Inj 2 Mg/Ml Vial IVP 08/17/25 17:59 Not Given Q4HR BO Insulin Human Lispro 0 unit 08/10/25 17:45 08/12/25 20:19 Insulin Lispro (Admelog) 1 Unit/0.01 Ml Unit SC 09/09/25 17:44 2 unit ACHS BO Administration Protocol Metronidazole 500 mg 08/11/25 22:00 08/13/25 05:42 Metronidazole 250 Mg Tablet PO 09/27/25 12:00 500 mg TID BO Administration Nicotine 14 mg 08/11/25 09:00 08/12/25 08:42 Nicotine Patch 14 Mg/24 Hr Patch.Td24 TOP 09/10/25 08:59 14 mg QDAY BO Administration Ondansetron HCl 4 mg 08/10/25 14:29 Ondansetron Inj 2 Mg/Ml Inj 2 Ml IVP 09/09/25 14:28 Q6H PRN NAUSEA OR VOMITING Protocol Sennosides 1 tab 08/10/25 14:34 Senna Tablet PO 09/09/25 14:33 QDAY PRN constipation Protocol Plan #Cellulitis right foot wounds # Osteomyelitis of left great toe and first metatarsal - Cellulitis with subcutaneous gas and small focal bony erosion concerning osteomyelitis - MRI foot showed: Left foot - osteomyelitis ungual tuft of distal phalanx first digit and early osteomyelitis in the distal plantar aspect first metatarsal. Right foot - negative for osteomyelitis, negative for soft tissue abscess - Status post I&D by Dr. Blanc. Amputation was not performed. Patient will need to be on long-term antibiotics. Wound and abscess was cultured. No bone biopsy was taken for culture. Plan: - Blood culture on 08/10 no growth to date - Pending wound and abscess culture - Continue current antibiotic regimen: Doxy 100mg PO BID Flagyl 500mg TID(started 08/11) - Adjust antibiotic regimen based on culture result and sensitivity - PICC line placement, with d/c planning to SN[facility] in the setting of septis, likely prerenal -resolving - Creatinine of 2.4, from baseline of 1.2 - Creatinine improved, back to baseline - Received 1 L bolus NS in ED. Additional bolus 1 L LR. Plan: - Stop IV fluid - Avoid further nephrotoxic agents - Monitor renal function daily #Cachexia - BMI of 15.2 in the setting of active smoker and homeless senior care, history of unprotected sex - Denied recent weight loss, admitted to chronic weight loss - UTOX positive amphetamine methamphetamine - HIV and hepatitis panel negative - CXR negative, COPD pattern Plan: - Encourage oral intake - Control with diet - Diet carbohydrate consistent #Diabetes Patient has history of diabetes. UA 4+ glucose. HA1c 6.8%. Not on medication. Patient refuses insulin, stating that when he had insulins in [facility], he experienced blindness. Blood glucose 121 this morning. Plan: - Carb consistent diet - Consider other oral antidiabetics if blood glucose uncontrolled #Cough - Reported coughing with black sputum intermittently, worsen when he goes to work in [employer] field - In the setting of chronic active smoker - PPD negative Plan: - Nicotine patch as needed - Nebs as needed DVT prophylaxis: Heparin GI prophylaxis: None Diet: Carb consistent low Lines: PIV Code status: Full code Assessment and plan discussed with my attending physician Dr. Guillen and Dr. Rosenberg (PGY-2). Dr. Cid (PGY-1) ? residential lawn specialist Attending Provider Attestation/Addendum I have discussed and was present for the essential components of the history, physical examination, diagnosis, and treatment plan with the resident. I agree with the patient's care as documented by the resident and amended herein by me. Yo Guillen DO. Although this document has been carefully reviewed, there may still be some phonetic and other typographical errors. These errors are purely grammatical due to imperfections in the software program and should not be construed in any way to compromise the substance of the patient's medical care during this visit. Patient seen and evaluated this AM. No acute events overnight, vital signs stable, patient afebrile, WBC elevated 7.6 today likely a combination of infection and reactive in nature due to I&D, which occurred yesterday on 08/12. At this time, we will continue broad-spectrum antibiotics, we will wait for culture results and tailor antibiotics as needed. Patient will likely go with IV ceftriaxone until 09/27, PICC line was placed today.
--- NOTE | 2025-08-13 12:54 | XR_ITS ---
EXAM: Fluoroscopic GUIDED PLACEMENT OF TUNNELED CENTRAL VENOUS CATHETER. INDICATION: Osteomyelitis. DATE: 08/13/2025, 12:38 p.m. Fluoroscopy time: 0.3 minutes Dose: 5.67 mGy Procedure: After discussion of risks and benefits informed consent was obtained. Patient was brought to the IR suite and placed supine on the exam table. Preliminary ultrasound evaluation demonstrated the right IJ to be patent. Skin overlying the right IJ was cleaned and draped in normal sterile surgical fashion. 10 cc of 1% lidocaine was used for local anesthesia. Using ultrasound guidance access to the right IJ was obtained with a micropuncture needle. A 0.018 wire was advanced through the needle and the needle was withdrawn. A 5 [place] sheath was placed over the wire the sheath was capped. 7 [place] dual-lumen catheter was attached to the tunneling device. A 5 mm incision was made over the right lateral chest wall just below the clavicle and a subcutaneous tunnel was created connecting the 5 mm incision to the right IJ access site. The catheter and timing device were pulled through the tunnel exiting at the right IJ access site. The catheter was cut to the appropriate length, 25 cm. Right IJ sheath was uncapped. 035 wire was advanced. 6 [place] peel-away sheath placed over the wire and the wire was removed. Sheath peel-away sheath was removed. Distal catheter tip was properly positioned with cavoatrial junction. Both ports flushed and aspirated easily.The right antecubital fossa with a Sta-Fix device. Right IJ access site was closed with glue. There were no immediate complications. IMPRESSION: Successful right-sided tunneled central venous catheter placed as above. Catheter is ready for use.
[2025-08-13] MEDS: LIDOCAINE INJ PF 1% 30 ML VIAL 20 ML INFL (13:34)
[2025-08-13] MEDS: INSULIN LISPRO (AdmeLOG) 1 UNIT/0.01 ML UNIT SC ×2 (17:42→22:14)
[2025-08-14] VITALS (9 sets, daily range): BP systolic 95–149; BP diastolic 67–82; PULSE 74–85; RESP 16–96; TEMP 36.1–37.1; O2SAT 96–98
[2025-08-14] MEDS: HYDROcodone/APAP 5/325 TABLET 1 TAB PO (01:21)
--- NOTE | 2025-08-14 06:30 | PC.NURSE ---
having on and off hiccups.
--- NOTE | 2025-08-14 07:37 | PC.NURSE ---
having on and off hiccups.
[2025-08-14] MEDS: cefTRIAXone 2 GM in SODIUM CHLORIDE 0.9% (Popper) 50 ML IV (09:15)
[2025-08-14] MEDS: NICOTINE PATCH 14 MG/24 HR PATCH.TD24 TOP (09:15)
[2025-08-14] MEDS: HEPARIN SOD INJ 5000 UNIT/ML VIAL SC ×2 (09:15→20:21)
[2025-08-14] MEDS: DOXYCYCLINE 100 MG TABLET PO ×2 (09:16→20:21)
[2025-08-14 09:20] LABS: Basophils # (Auto) 0.1 Thou/mm3 (0.0-0.2); Basophils % (Auto) 1 % (0-2.5); Eosinophils # (Auto) 0.1 Thou/mm3 (0.0-0.5); Eosinophils % (Auto) 1 % (0-10); Hematocrit 29.1 % (41.0-53.0); Hemoglobin 10.0 g/dL (13.5-16.0); Immature Granulocytes Auto 0.15 Thou/mm3 (0.00-0.00); Lymphocytes # (Auto) 1.3 Thou/mm3 (1.0-4.8); Lymphocytes % (Auto) 9 % (10-50); Mean Corpuscular HGB Conc 34.4 g/dl (31.0-37.0); Mean Corpuscular Hemoglobin 31.4 pg (25.0-35.0); Mean Corpuscular Volume 92 fL (80-100); Monocytes # (Auto) 1.0 Thou/mm3 (0.0-0.8); Monocytes % (Auto) 6 % (0-12); Neutrophils # (Auto) 12.7 Thou/mm3 (1.8-7.7); Neutrophils % (Auto) 83 % (37-80); Nucleated Red Blood Cell # 0.00 Thou/mm3 (0.00-0.00); Nucleated Red Blood Cell % 0 /100 WBC (0); Platelet Count 302 Thou/mm3 (140-440); RDW Standard Deviation 45.3 fL (35.1-43.9); Red Blood Count 3.18 Miln/mm3 (4.50-5.90); White Blood Count 15.3 Thou/mm3 (3.8-10.6)
[2025-08-14 09:52] LABS: Alanine Aminotransferase 10 U/L (10-49); Albumin, Serum 3.6 gm/dL (3.4-4.8); Albumin/Globulin Ratio 1.3 (1.2-2.2); Alkaline Phosphatase 83 U/L (46-116); Anion Gap 7 (7-16); Aspartate Amino Transferase 18 U/L (0-34); BUN/Creatinine Ratio 30 Ratio (12-20); Bilirubin,Total 0.3 mg/dL (0.3-1.2); Blood Urea Nitrogen 27 mg/dL (9-23); Calcium 8.8 mg/dL (8.3-10.6); Calcium (Corrected) 9.1 mg/dL (8.5-10.1); Carbon Dioxide 26.2 mMol/L (20.0-31.0); Chloride 99 mMol/L (98-107); Creatinine (Component) 0.9 mg/dL (0.6-1.3); Estimated Creatinine Clearance 54.6 mL/min (>60); Globulin 2.7 gm/dL (2.3-3.5); Glucose 244 mg/dL (74-106); Osmolality,Calculated 277 (275-295); Potassium 4.7 mMol/L (3.4-5.1); Sodium 132 mMol/L (136-145); Total Protein 6.3 gm/dL (5.7-8.2); eGFR > 60 See Note
[2025-08-14] MEDS: HYDROmorphone INJ 2 MG/ML VIAL 1 MG IVP ×2 (10:48→17:22)
[2025-08-14] MEDS: INSULIN LISPRO (AdmeLOG) 1 UNIT/0.01 ML UNIT SC ×2 (11:52→17:21)
--- NOTE | 2025-08-14 15:24 | ESPR_ITS ---
<Statement entered by Dajuan Rosenberg MD - 08/14/25 15:56> Patient seen and examined at bedside. I discussed and supervised with the international coordinator physician who took care of this patient. I personally saw and examined the patient. I agree with most of the assessment and plan. Patient seen and examined at bedside, reports subjective improvement. Mild foot pain, well controlled. Pending I&D culture results. Currently on Doxycyclin, Rocephin. PICC line in place. Plan of care discussed with attending Dr. Guillen. Dajuan Rosenberg MD PGY-2 Documentation for date of: 08/14/25 Subjective Subjective Interval history: Patient was seen and examined at bedside. No acute events took place overnight. 60 years old male admitted for left great toe and first metatarsal osteomyelitis and right plantar cellulitis status post I&D with Dr. Blanc, currently on Flagyl, doxycycline, Rocephin, ID and wound care following. Patient reports intermittent sharp pain in the right foot. Patient is tentatively excepted to discharge [facility], pending insurance clearance. Patient felt much better today after I&D, no pain appreciated. Exam Vital Signs Temp Pulse Resp BP Pulse Ox O2 Del Method O2 Flow Rate 97.3 F 75 18 131/75 H 97 Room Air 4 08/14/25 12:00 08/14/25 12:00 08/14/25 12:00 08/14/25 12:00 08/14/25 12:00 08/14/25 12:00 08/12/25 13:08 Narrative Exam GENERAL APPEARANCE: alert and oriented x 4, cachexia, no acute distress HEENT: Temporal wasting, atraumatic; constricted pupil bilaterally; EOMI; mucous membranes pink, moist; oropharynx clear NECK: Supple LUNGS: Distant breath sounds bilaterally HEART: Regular rate, regular rhythm ABDOMEN: non distended; normal BS; soft, no tenderness, no guarding, no rebound; no masses, no organomegaly, no hernia EXTREMITIES: Right mid foot wrapped in Kerlix, mild erythema, no swelling, no drainage. Left front foot wrapped in Kerlix, no drainage. NEUROLOGIC: awake; alert and oriented x4; cranial nerves II-XII grossly intact PSYCHIATRIC: appropriate mood and affect SKIN: warm, dry, normal color; no rashes Objective Labs 08/14/25 09:06 08/14/25 09:06 Labs: Laboratory Results - last 24 hr 08/14/25 09:06 WBC 15.3 H RBC 3.18 L Hgb 10.0 L Hct 29.1 L MCV 92 MCH 31.4 MCHC 34.4 RDW Std Deviation 45.3 H Plt Count 302 Neut % (Auto) 83 H Lymph % (Auto) 9 L [place] % (Auto) 6 Eos % (Auto) 1 Baso % (Auto) 1 Neut # (Auto) 12.7 H Lymph # (Auto) 1.3 [place] # (Auto) 1.0 H Eos # (Auto) 0.1 Baso # (Auto) 0.1 Immature Gran # (Auto) 0.15 H Absolute Nucleated RBC 0.00 Immature Gran % 1 H Nucleated RBC % 0 Sodium 132 L Potassium 4.7 Chloride 99 Carbon Dioxide 26.2 Anion Gap 7 BUN 27 H Creatinine 0.9 Estim Creat Clear Calc 54.6 L eGFR > 60 BUN/Creatinine Ratio 30 H Glucose 244 H D Calculated Osmolality 277 Calcium 8.8 Corrected Calcium 9.1 Total Bilirubin 0.3 AST 18 ALT 10 Alkaline Phosphatase 83 Total Protein 6.3 Albumin 3.6 Globulin 2.7 Albumin/Globulin Ratio 1.3 Quality Measures Quality Measures VTE prophylaxis Assessment & Plan Assessment Current Active Medications: Generic Name Dose Route Start Last Admin Trade Name Freq PRN Reason Stop Dose Admin Acetaminophen 650 mg 08/10/25 14:29 Acetaminophen 325 Mg Tablet PO 09/09/25 14:28 Q6H PRN Fever >101.5 Hydrocodone Bitart/Acetaminophen 1 tab 08/12/25 14:27 08/14/25 01:21 Hydrocodone/Apap 5/325 Tablet PO 08/17/25 14:26 1 tab Q4HR PRN Administration PAIN SCALE 4-6 (Moderate Dextrose 25 ml 08/10/25 14:43 Dextrose 50%-Water Inj 50 Ml Syringe IV 09/09/25 14:42 Q15MIN PRN BG 50-70 responsive npo pt Dextrose 50 ml 08/10/25 14:43 Dextrose 50%-Water Inj 50 Ml Syringe IV 09/09/25 14:42 Q15MIN PRN BG <50 OR BG <70 & pt unresponsive Docusate Sodium 100 mg 08/10/25 14:34 Docusate Sod 100 Mg Capsule PO 09/09/25 14:33 QDAY PRN CONSTIPATION Protocol Doxycycline Hyclate 100 mg 08/13/25 21:00 08/14/25 09:16 Doxycycline 100 Mg Tablet PO 08/16/25 12:00 100 mg BID BO Administration Glucagon 1 mg 08/10/25 14:43 Glucagon Inj 1 Mg Vial IM Q15MIN PRN BG <70, and no IV access Heparin Sodium (Porcine) 5,000 unit 08/10/25 21:00 08/14/25 09:15 Heparin Sod Inj 5000 Unit/Ml Vial SC 08/24/25 20:59 5,000 unit Q12HR BO Administration Hydromorphone HCl 1 mg 08/14/25 14:08 Hydromorphone Inj 2 Mg/Ml Vial IVP 08/17/25 17:59 Q4HR PRN pain scale 4-10 Ceftriaxone Sodium 2 gm/ 50 mls @ 100 mls/hr 08/14/25 09:00 08/14/25 09:15 Sodium Chloride IV 08/21/25 08:59 100 mls/hr QDAY BO Administration Insulin Human Lispro 0 unit 08/10/25 17:45 08/14/25 11:52 Insulin Lispro (Admelog) 1 Unit/0.01 Ml Unit SC 09/09/25 17:44 1 unit ACHS BO Administration Protocol Nicotine 14 mg 08/11/25 09:00 08/14/25 09:15 Nicotine Patch 14 Mg/24 Hr Patch.Td24 TOP 09/10/25 08:59 14 mg QDAY BO Administration Ondansetron HCl 4 mg 08/10/25 14:29 Ondansetron Inj 2 Mg/Ml Inj 2 Ml IVP 09/09/25 14:28 Q6H PRN NAUSEA OR VOMITING Protocol Sennosides 1 tab 08/10/25 14:34 Senna Tablet PO 09/09/25 14:33 QDAY PRN constipation Protocol Plan A 60-year-old male with past medical history of hypertension, diabetes mellitus presented with left foot and great toe redness and swelling x 10 days and right bottom foot redness x 7 days. #Cellulitis right foot wounds # Osteomyelitis of left great toe and first metatarsal - Cellulitis with subcutaneous gas and small focal bony erosion concerning osteomyelitis - MRI foot showed: Left foot - osteomyelitis ungual tuft of distal phalanx first digit and early osteomyelitis in the distal plantar aspect first metatarsal. Right foot - negative for osteomyelitis, negative for soft tissue abscess - Status post I&D by Dr. Blanc. Amputation was not performed. Patient will need to be on long-term antibiotics. Wound and abscess was cultured. No bone biopsy was taken for culture. - Patient was on Flagyl 500 mg 3 times daily from 08/11 to 08/13. - Wound cultures grew GNR and Streptococcus dysgalactiae. No anaerobic brendan Plan: - Blood culture on 08/10 no growth to date - pending abscess ctx - Doxycycline PO 100mg BID (08/11 - ) and CTX IV 2g Qday (08/14 - ) - Adjust antibiotic regimen based on culture result and sensitivity - PICC line placement, with d/c planning to [facility] in the setting of septis, likely prerenal -resolving - Creatinine of 2.4, from baseline of 1.2 - Creatinine improved, back to baseline - Received 1 L bolus NS in ED. Additional bolus 1 L LR. Plan: - Stop IV fluid - Avoid further nephrotoxic agents - Monitor renal function daily #Cachexia - BMI of 15.2 in the setting of active smoker and homeless assisted, history of unprotected sex - Denied recent weight loss, admitted to chronic weight loss - UTOX positive amphetamine methamphetamine - HIV and hepatitis panel negative - CXR negative, COPD pattern Plan: - Encourage oral intake - Control with diet - Diet carbohydrate consistent #Diabetes Patient has history of diabetes. UA 4+ glucose. HA1c 6.8%. Not on medication. Patient refuses insulin, stating that when he had insulins in [facility], he experienced blindness. Blood glucose 121 this morning. Plan: - Insulin sliding scale - Carb consistent diet - Consider other oral antidiabetics if blood glucose uncontrolled #Cough - Reported coughing with black sputum intermittently, worsen when he goes to work in [employer] [place] - In the setting of chronic active smoker - PPD negative Plan: - Nicotine patch as needed - Nebs as needed DVT prophylaxis: Heparin GI prophylaxis: None Diet: Carb consistent low Lines: PIV Code status: Full code This case was discussed with my attending physician, Dr. Guillen, and senior resident, Dr Rosenberg. Adams Melgoza, DO PGY I Attending Provider Attestation/Addendum I have discussed and was present for the essential components of the history, physical examination, diagnosis, and treatment plan with the resident. I agree with the patient's care as documented by the resident and amended herein by me. Yo Guillen DO. Although this document has been carefully reviewed, there may still be some phonetic and other typographical errors. These errors are purely grammatical due to imperfections in the software program and should not be construed in any way to compromise the substance of the patient's medical care during this visit. Patient seen and evaluated this AM. No acute events overnight, vital signs stable, patient afebrile, cultures from the patient's debridement of the foot demonstrating strep dysgalactiae and another GNR organism which has yet to speciate. No anaerobic growth detected, as such we will DC metronidazole for now, will restart ceftriaxone 2 g daily and continue doxycycline 100 mg twice daily. Plan for antibiotic coverage through 09/27/2025 for osteomyelitis, likely DC to SNF in 1 to 2 days pending final speciation results and culture
[2025-08-15] VITALS (8 sets, daily range): BP systolic 110–132; BP diastolic 65–82; PULSE 75–90; RESP 16–98; TEMP 36.4–36.8; O2SAT 96–99
[2025-08-15 05:10] LABS: Basophils # (Auto) 0.1 Thou/mm3 (0.0-0.2); Basophils % (Auto) 1 % (0-2.5); Eosinophils # (Auto) 0.1 Thou/mm3 (0.0-0.5); Eosinophils % (Auto) 1 % (0-10); Hematocrit 30.4 % (41.0-53.0); Hemoglobin 10.3 g/dL (13.5-16.0); Immature Granulocytes Auto 0.16 Thou/mm3 (0.00-0.00); Lymphocytes # (Auto) 1.9 Thou/mm3 (1.0-4.8); Lymphocytes % (Auto) 12 % (10-50); Mean Corpuscular HGB Conc 33.9 g/dl (31.0-37.0); Mean Corpuscular Hemoglobin 31.1 pg (25.0-35.0); Mean Corpuscular Volume 92 fL (80-100); Monocytes # (Auto) 1.1 Thou/mm3 (0.0-0.8); Monocytes % (Auto) 7 % (0-12); Neutrophils # (Auto) 12.6 Thou/mm3 (1.8-7.7); Neutrophils % (Auto) 79 % (37-80); Nucleated Red Blood Cell # 0.00 Thou/mm3 (0.00-0.00); Nucleated Red Blood Cell % 0 /100 WBC (0); Platelet Count 364 Thou/mm3 (140-440); RDW Standard Deviation 46.4 fL (35.1-43.9); Red Blood Count 3.31 Miln/mm3 (4.50-5.90); White Blood Count 15.9 Thou/mm3 (3.8-10.6)
[2025-08-15 06:01] LABS: Alanine Aminotransferase 12 U/L (10-49); Albumin, Serum 3.9 gm/dL (3.4-4.8); Albumin/Globulin Ratio 1.3 (1.2-2.2); Alkaline Phosphatase 89 U/L (46-116); Anion Gap 6 (7-16); Aspartate Amino Transferase 17 U/L (0-34); BUN/Creatinine Ratio 34 Ratio (12-20); Bilirubin,Total 0.3 mg/dL (0.3-1.2); Blood Urea Nitrogen 27 mg/dL (9-23); Calcium 9.4 mg/dL (8.3-10.6); Calcium (Corrected) 9.5 mg/dL (8.5-10.1); Carbon Dioxide 29.1 mMol/L (20.0-31.0); Chloride 101 mMol/L (98-107); Creatinine (Component) 0.8 mg/dL (0.6-1.3); Estimated Creatinine Clearance 61.5 mL/min (>60); Globulin 3.1 gm/dL (2.3-3.5); Glucose 131 mg/dL (74-106); Magnesium 1.8 mg/dL (1.6-2.6); Osmolality,Calculated 279 (275-295); Phosphorous 2.6 mg/dL (2.4-5.1); Potassium 4.3 mMol/L (3.4-5.1); Sodium 136 mMol/L (136-145); Total Protein 7.0 gm/dL (5.7-8.2); eGFR > 60 See Note
[2025-08-15] MEDS: NICOTINE PATCH 14 MG/24 HR PATCH.TD24 TOP (08:10)
[2025-08-15] MEDS: DOXYCYCLINE 100 MG TABLET PO ×2 (08:10→20:25)
[2025-08-15] MEDS: cefTRIAXone 2 GM in SODIUM CHLORIDE 0.9% (Popper) 50 ML IV (08:10)
[2025-08-15] MEDS: HEPARIN SOD INJ 5000 UNIT/ML VIAL SC ×2 (08:11→20:25)
--- NOTE | 2025-08-15 08:11 | ESPR_ITS ---
<Statement entered by Manuel Mckinnon MD - 08/15/25 15:25> Patient was seen and examined at bedside. I agree on the assessment and plan on this note as documented by resident Dr Arianne Cid DO PGY1. 60-year-old male with past medical history as below admitted for osteomyelitis and cellulitis, patient is status post I&D. JUNO has improved, will continue Ceftriaxone and Doxycycline till September 27, 2025 per ID recommendations. Patient is significantly cachectic, encourage oral intake. Patient's cultures have resulted Morganella morganii and Streptococcus dysgalactiae, anticipate discharge in the next 24 hours, patient is pending SNF placement. Case discussed with attending Dr. José Guillen, DO Manuel Mckinnon MD PGY-2 Documentation for date of: 08/15/25 Subjective Subjective Interval history: No acute event overnight. Patient was seen and examined by bedside. Right IJ TDC in place. Abscess culture positive for Strep. dysgalactactiae and Morganella morganii. Currently on Doxycycline, Rocephine. Pending for placement in [facility]. Will need to make appointment to return to ED to remove Right IJ after finishing antibiotic course. Exam Vital Signs Temp Pulse Resp BP Pulse Ox O2 Del Method O2 Flow Rate 98.1 F 90 20 117/74 99 Room Air 4 08/15/25 04:00 08/15/25 07:11 08/15/25 07:11 08/15/25 04:00 08/15/25 04:00 08/15/25 04:00 08/12/25 13:08 Narrative Exam GENERAL APPEARANCE: alert and oriented x 4, cachexia, no acute distress HEENT: Temporal wasting, atraumatic; constricted pupil bilaterally; EOMI; mucous membranes pink, moist; oropharynx clear NECK: Supple LUNGS: Distant breath sounds bilaterally HEART: Regular rate, regular rhythm ABDOMEN: non distended; normal BS; soft, no tenderness, no guarding, no rebound; no masses, no organomegaly, no hernia EXTREMITIES: Right mid foot wrapped in Kerlix, mild erythema, no swelling, no drainage. Left front foot wrapped in Kerlix, no drainage. NEUROLOGIC: awake; alert and oriented x4; cranial nerves II-XII grossly intact PSYCHIATRIC: appropriate mood and affect SKIN: warm, dry, normal color; no rashes Objective Labs 08/15/25 05:00 08/15/25 05:00 Labs: Laboratory Results - last 24 hr 08/14/25 08/15/25 09:06 05:00 WBC 15.3 H 15.9 H RBC 3.18 L 3.31 L Hgb 10.0 L 10.3 L Hct 29.1 L 30.4 L MCV 92 92 MCH 31.4 31.1 MCHC 34.4 33.9 RDW Std Deviation 45.3 H 46.4 H Plt Count 302 364 D Neut % (Auto) 83 H 79 Lymph % (Auto) 9 L 12 [place] % (Auto) 6 7 Eos % (Auto) 1 1 Baso % (Auto) 1 1 Neut # (Auto) 12.7 H 12.6 H Lymph # (Auto) 1.3 1.9 [place] # (Auto) 1.0 H 1.1 H Eos # (Auto) 0.1 0.1 Baso # (Auto) 0.1 0.1 Immature Gran # (Auto) 0.15 H 0.16 H Absolute Nucleated RBC 0.00 0.00 Immature Gran % 1 H 1 H Nucleated RBC % 0 0 Sodium 132 L 136 Potassium 4.7 4.3 Chloride 99 101 Carbon Dioxide 26.2 29.1 Anion Gap 7 6 L BUN 27 H 27 H Creatinine 0.9 0.8 Estim Creat Clear Calc 54.6 L 61.5 eGFR > 60 > 60 BUN/Creatinine Ratio 30 H 34 H Glucose 244 H D 131 H D Calculated Osmolality 277 279 Calcium 8.8 9.4 Corrected Calcium 9.1 9.5 Phosphorus 2.6 Magnesium 1.8 Total Bilirubin 0.3 0.3 AST 18 17 ALT 10 12 Alkaline Phosphatase 83 89 Total Protein 6.3 7.0 Albumin 3.6 3.9 Globulin 2.7 3.1 Albumin/Globulin Ratio 1.3 1.3 Quality Measures Quality Measures VTE prophylaxis Assessment & Plan Assessment Current Active Medications: Generic Name Dose Route Start Last Admin Trade Name Freq PRN Reason Stop Dose Admin Acetaminophen 650 mg 08/10/25 14:29 Acetaminophen 325 Mg Tablet PO 09/09/25 14:28 Q6H PRN Fever >101.5 Hydrocodone Bitart/Acetaminophen 1 tab 08/12/25 14:27 08/14/25 01:21 Hydrocodone/Apap 5/325 Tablet PO 08/17/25 14:26 1 tab Q4HR PRN Administration PAIN SCALE 4-6 (Moderate Dextrose 25 ml 08/10/25 14:43 Dextrose 50%-Water Inj 50 Ml Syringe IV 09/09/25 14:42 Q15MIN PRN BG 50-70 responsive npo pt Dextrose 50 ml 08/10/25 14:43 Dextrose 50%-Water Inj 50 Ml Syringe IV 09/09/25 14:42 Q15MIN PRN BG <50 OR BG <70 & pt unresponsive Docusate Sodium 100 mg 08/10/25 14:34 Docusate Sod 100 Mg Capsule PO 09/09/25 14:33 QDAY PRN CONSTIPATION Protocol Doxycycline Hyclate 100 mg 08/13/25 21:00 08/14/25 20:21 Doxycycline 100 Mg Tablet PO 08/16/25 12:00 100 mg BID BO Administration Glucagon 1 mg 08/10/25 14:43 Glucagon Inj 1 Mg Vial IM Q15MIN PRN BG <70, and no IV access Heparin Sodium (Porcine) 5,000 unit 08/10/25 21:00 08/14/25 20:21 Heparin Sod Inj 5000 Unit/Ml Vial SC 08/24/25 20:59 5,000 unit Q12HR BO Administration Hydromorphone HCl 1 mg 08/14/25 14:08 08/14/25 17:22 Hydromorphone Inj 2 Mg/Ml Vial IVP 08/17/25 17:59 1 mg Q4HR PRN Administration pain scale 4-10 Ceftriaxone Sodium 2 gm/ 50 mls @ 100 mls/hr 08/14/25 09:00 08/14/25 09:15 Sodium Chloride IV 08/21/25 08:59 100 mls/hr QDAY BO Administration Insulin Human Lispro 0 unit 08/10/25 17:45 08/15/25 07:07 Insulin Lispro (Admelog) 1 Unit/0.01 Ml Unit SC 09/09/25 17:44 Not Given ACHS BO Protocol Nicotine 14 mg 08/11/25 09:00 08/14/25 09:15 Nicotine Patch 14 Mg/24 Hr Patch.Td24 TOP 09/10/25 08:59 14 mg QDAY BO Administration Ondansetron HCl 4 mg 08/10/25 14:29 Ondansetron Inj 2 Mg/Ml Inj 2 Ml IVP 09/09/25 14:28 Q6H PRN NAUSEA OR VOMITING Protocol Sennosides 1 tab 08/10/25 14:34 Senna Tablet PO 09/09/25 14:33 QDAY PRN constipation Protocol Plan A 60-year-old male with past medical history of hypertension, diabetes mellitus presented with left foot and great toe redness and swelling x 10 days and right bottom foot redness x 7 days. #Cellulitis right foot wounds #Osteomyelitis of left great toe and first metatarsal - Cellulitis with subcutaneous gas and small focal bony erosion concerning osteomyelitis - MRI foot showed: Left foot - osteomyelitis ungual tuft of distal phalanx first digit and early osteomyelitis in the distal plantar aspect first metatarsal. Right foot - negative for osteomyelitis, negative for soft tissue abscess - Status post I&D by Dr. Blanc. Amputation was not performed. Patient will need to be on long-term antibiotics. Wound and abscess was cultured. No bone biopsy was taken for culture. - Patient was on Flagyl 500 mg 3 times daily from 08/11 to 08/13. - Wound cultures grew GNR and Streptococcus dysgalactiae. No anaerobic brendan Plan: - Blood culture on 08/10 no growth to date - Doxycycline PO 100mg BID (08/13 - 08/16) and CTX IV 2g Qday ( - Right IJ in place - Pending approval from [facility] for dispo to finish IV Rocephin - Plan to return to ED for Right IJ removal after antibiotic course #JUNO in the setting of septis, likely prerenal -resolving - Creatinine of 2.4, from baseline of 1.2 - Creatinine improved, back to baseline - Received 1 L bolus NS in ED. Additional bolus 1 L LR. Plan: - Stop IV fluid - Avoid further nephrotoxic agents - Monitor renal function daily #Cachexia - BMI of 15.2 in the setting of active smoker and homeless mcc, history of unprotected sex - Denied recent weight loss, admitted to chronic weight loss - UTOX positive amphetamine methamphetamine - HIV and hepatitis panel negative - CXR negative, COPD pattern Plan: - Encourage oral intake - Control with diet - Diet carbohydrate consistent #Diabetes Patient has history of diabetes. UA 4+ glucose. HA1c 6.8%. Not on medication. Patient refuses insulin, stating that when he had insulins in [facility], he experienced blindness. Blood glucose 121 this morning. Plan: - Insulin sliding scale - Carb consistent diet - Consider other oral antidiabetics if blood glucose uncontrolled #Cough - Reported coughing with black sputum intermittently, worsen when he goes to work in [place] - In the setting of chronic active smoker - PPD negative Plan: - Nicotine patch as needed - Nebs as needed DVT prophylaxis: Heparin GI prophylaxis: None Diet: Carb consistent low Lines: PIV Code status: Full code Assessment and plan discussed with my attending physician Dr. Guillen and Dr. Mckinnon (PGY-2). Dr. Cid (PGY-1) ? chaplain resident Attending Provider Attestation/Addendum I have discussed and was present for the essential components of the history, physical examination, diagnosis, and treatment plan with the resident. I agree with the patient's care as documented by the resident and amended herein by me. Yo Guillen DO. Although this document has been carefully reviewed, there may still be some phonetic and other typographical errors. These errors are purely grammatical due to imperfections in the software program and should not be construed in any way to compromise the substance of the patient's medical care during this visit.
--- NOTE | 2025-08-15 10:35 | PC.SS ---
Addendum entered by Reva Del Castillo 08/15/25 13:29: Attempted to connect with [facility] Staff [phone] and [facility], unable to connect to confirm if patient can discharge to their SNF. Original Note: Informed by Dr. Mckinnon patient can discharge today. [facility] SNF contacted, pending confirmation if patient can be received. [facility] to inform .
[2025-08-15] MEDS: INSULIN LISPRO (AdmeLOG) 1 UNIT/0.01 ML UNIT SC ×3 (11:23→20:47)
[2025-08-16] VITALS: BP 115/65; PULSE 84; RESP 15; TEMP 36.2; O2SAT 98
[2025-08-16 04:00] VITALS: BP 134/79; PULSE 72; RESP 16; TEMP 36.3; O2SAT 98
[2025-08-16 05:05] LABS: Basophils # (Auto) 0.1 Thou/mm3 (0.0-0.2); Basophils % (Auto) 1 % (0-2.5); Eosinophils # (Auto) 0.2 Thou/mm3 (0.0-0.5); Eosinophils % (Auto) 1 % (0-10); Hematocrit 28.5 % (41.0-53.0); Hemoglobin 9.5 g/dL (13.5-16.0); Immature Granulocytes Auto 0.20 Thou/mm3 (0.00-0.00); Lymphocytes # (Auto) 2.1 Thou/mm3 (1.0-4.8); Lymphocytes % (Auto) 15 % (10-50); Mean Corpuscular HGB Conc 33.3 g/dl (31.0-37.0); Mean Corpuscular Hemoglobin 31.0 pg (25.0-35.0); Mean Corpuscular Volume 93 fL (80-100); Monocytes # (Auto) 1.0 Thou/mm3 (0.0-0.8); Monocytes % (Auto) 7 % (0-12); Neutrophils # (Auto) 10.2 Thou/mm3 (1.8-7.7); Neutrophils % (Auto) 74 % (37-80); Nucleated Red Blood Cell # 0.00 Thou/mm3 (0.00-0.00); Nucleated Red Blood Cell % 0 /100 WBC (0); Platelet Count 372 Thou/mm3 (140-440); RDW Standard Deviation 47.3 fL (35.1-43.9); Red Blood Count 3.06 Miln/mm3 (4.50-5.90); White Blood Count 13.7 Thou/mm3 (3.8-10.6)
[2025-08-16 05:23] LABS: Alanine Aminotransferase 20 U/L (10-49); Albumin, Serum 3.7 gm/dL (3.4-4.8); Albumin/Globulin Ratio 1.2 (1.2-2.2); Alkaline Phosphatase 88 U/L (46-116); Anion Gap 7 (7-16); Aspartate Amino Transferase 32 U/L (0-34); BUN/Creatinine Ratio 29 Ratio (12-20); Bilirubin,Total 0.2 mg/dL (0.3-1.2); Blood Urea Nitrogen 29 mg/dL (9-23); Calcium 8.9 mg/dL (8.3-10.6); Calcium (Corrected) 9.1 mg/dL (8.5-10.1); Carbon Dioxide 28.5 mMol/L (20.0-31.0); Chloride 103 mMol/L (98-107); Creatinine (Component) 1.0 mg/dL (0.6-1.3); Estimated Creatinine Clearance 49.2 mL/min (>60); Globulin 3.0 gm/dL (2.3-3.5); Glucose 354 mg/dL (74-106); Magnesium 1.9 mg/dL (1.6-2.6); Osmolality,Calculated 295 (275-295); Phosphorous 2.2 mg/dL (2.4-5.1); Potassium 4.5 mMol/L (3.4-5.1); Sodium 138 mMol/L (136-145); Total Protein 6.7 gm/dL (5.7-8.2); eGFR > 60 See Note
--- NOTE | 2025-08-16 05:31 | ESPR_ITS ---
Subjective Subjective Interval history: unable to see formally as I am away. some circulatory issues noted on arterial study report. Exam Vital Signs Temp Pulse Resp BP Pulse Ox O2 Del Method O2 Flow Rate 97.4 F 72 16 134/79 H 98 Room Air 4 08/16/25 04:00 08/16/25 04:00 08/16/25 04:00 08/16/25 04:00 08/16/25 04:00 08/16/25 04:00 08/12/25 13:08 Narrative Exam unable to see today Objective - Internal Medicine Labs 08/16/25 04:21 08/16/25 04:21 Labs: Laboratory Results - last 24 hr 08/15/25 08/16/25 05:00 04:21 WBC 13.7 H RBC 3.06 L Hgb 9.5 L Hct 28.5 L MCV 93 MCH 31.0 MCHC 33.3 RDW Std Deviation 47.3 H Plt Count 372 Neut % (Auto) 74 Lymph % (Auto) 15 [place] % (Auto) 7 Eos % (Auto) 1 Baso % (Auto) 1 Neut # (Auto) 10.2 H Lymph # (Auto) 2.1 [place] # (Auto) 1.0 H Eos # (Auto) 0.2 Baso # (Auto) 0.1 Immature Gran # (Auto) 0.20 H Absolute Nucleated RBC 0.00 Immature Gran % 2 H Nucleated RBC % 0 Sodium 136 138 Potassium 4.3 4.5 Chloride 101 103 Carbon Dioxide 29.1 28.5 Anion Gap 6 L 7 BUN 27 H 29 H Creatinine 0.8 1.0 Estim Creat Clear Calc 61.5 49.2 L eGFR > 60 > 60 BUN/Creatinine Ratio 34 H 29 H Glucose 131 H D 354 H D Calculated Osmolality 279 295 Calcium 9.4 8.9 Corrected Calcium 9.5 9.1 Phosphorus 2.6 2.2 L Magnesium 1.8 1.9 Total Bilirubin 0.3 0.2 L AST 17 32 ALT 12 20 Alkaline Phosphatase 89 88 Total Protein 7.0 6.7 Albumin 3.9 3.7 Globulin 3.1 3.0 Albumin/Globulin Ratio 1.3 1.2 Assessment & Plan A&P Narrative deep infeciotn L foot with likely osteomyelitis of L foot by mri and surgery dm II. a1c 6,8. lupe normalized with support so far. will change to po doxy alone for now doxy 100 po id may adjust once s available to vanco or ancef or rocephin alone for remainder of rx thru 09/27 amputation would be definitive but is irreversible. no guarantees on rx of affected areas. ok to refer to vascular. I can not see him in f/u will see next saturday if still here. if home on iv rx. then please arrange weekly cbc, renal panel, esr on rx cx noted. oddly, gram stain did not show any gnr's I will otherwise be away for a few days to see my brother in another [place]. Time Spent With Patient Time: Total time spent is greater than 50% in coordination of care (as documented) at patient's floor/unit and/or counseling patient:
[2025-08-16] MEDS: INSULIN LISPRO (AdmeLOG) 1 UNIT/0.01 ML UNIT SC (07:30)
[2025-08-16 08:00] VITALS: BP 126/69; PULSE 77; RESP 16; TEMP 36.3; O2SAT 98
--- NOTE | 2025-08-16 08:40 | PC.SS ---
Addendum entered by Sarah Hayes 08/16/25 10:02: SS received a call from Nhi at [facility] who stated, pt is clear to DC to their facility today Original Note: SS was informed that pt was ready for DC yesterday. SS reached out to Nhi [facility] who stated she is not in office just yet but she needs to verify that the auth is still good or if they need to change the date. Nhi stated she will call SS back within 30min with update.
[2025-08-16] MEDS: DOXYCYCLINE 100 MG TABLET PO (08:41)
[2025-08-16] MEDS: cefTRIAXone 2 GM in SODIUM CHLORIDE 0.9% (Popper) 50 ML IV (08:41)
[2025-08-16] MEDS: HEPARIN SOD INJ 5000 UNIT/ML VIAL SC (08:41)
[2025-08-16] MEDS: NICOTINE PATCH 14 MG/24 HR PATCH.TD24 TOP (08:42)
[2025-08-16] MEDS: NAPH,KPH MBDB 1 PACKET (1.5 GM) 2 PACKET PO (08:42)
[2025-08-16] MEDS: INSULIN LISPRO (AdmeLOG) 1 UNIT/0.01 ML UNIT 2 UNIT SC (08:44)
[2025-08-16] MEDS: INSULIN DEGLUDEC 5 UNIT/0.05 ML (PER 5 UNITS) SC (08:57)
[2025-08-16] MEDS: HYDROcodone/APAP 5/325 TABLET 1 TAB PO (11:35)
[2025-08-16 12:00] VITALS: BP 131/78; PULSE 84; RESP 18; TEMP 36.2; O2SAT 99
--- NOTE | 2025-08-16 14:45 | ESDS_ITS ---
<Statement entered by Manuel Mckinnon MD - 08/17/25 05:08> Patient was seen and examined by me personally. I have reviewed the below documentation by the team resident and agree with its findings. Discharge plan was discussed with the attending, DO Manuel Nieves MD Internal Medicine, PGY-2 Planned Discharge Date 08/16/25 DS: Providers Provider Date of admission: 08/10/25 14:29 Primary care physician: Gregory Narayanan MD Admitting Provider: José Guillen DO Attending Provider on Admission: José Guillen DO Consults: 08/10/25 17:58 [facility] Referral - Knowledge Deficit Routine Comment: Positive screening for knowledge deficit needs. [facility] Referral - Transportation Routine Comment: Positive screening for transportation needs. 08/11/25 08:00 Referral Wound Care Routine Comment: 08/11/25 10:28 Consult to General Surgery Urgent Comment: Osteo b/l feet Consulting Provider: Opal Andrea 08/11/25 13:27 Referral Physical Therapy Routine Comment: Physician Instructions: 08/11/25 14:00 Consult to Infectious Diseases Urgent Comment: Osteomyelitis, no surgery Consulting Provider: Amadeo Johns 08/13/25 10:39 Referral Nutritional Services Routine Comment: Wounds 08/13/25 10:49 Referral Speech Therapy Routine Comment: dysphagia, new Attending Provider on DC: José Guillen MD Discharging Provider: Arianne Cid MD Anticipated date of discharge: 08/16/25 DS: Diagnosis Problem List Completed Was Problem List Reviewed/Reconciled?: Yes Hospital Course Hospital Course Hospital course: Hospital course: Mr. Golden is a 60-year-old male with past medical history hypertension, T2DM presented with L foot and great toe redness and swelling x 10 days and right bottom foot redness x 7 days, admitted for osteomyelitis in L great toe and first metatarsal. In ED, WBC 13.2 ESR 84 Creatinine 2.4. X-ray left foot shows osteomyelitis which was further confirmed with MRI. Patient received vancomycin, Zosyn, and IVF in the ED. In the hospital, patient underwent I&D with general surgeon Dr. Andrea. Wound cultures grew Morganella morganii and Streptococcus dysgalactiae, infectious disease recommended PICC line placement and IV antibiotics ceftriaxone 2 g daily and oral doxycycline through September 27, 2025, patient had tunneled catheter placed by interventional radiology, and plan is to discharge patient to custodial facility to continue IV antibiotics. Patient has severe protein calorie malnutrition, BMI 15.7, dietitian was consulted patient significantly cachectic. Patient responded well to hospital treatment, stable for discharge. Diagnoses: #Cellulitis right foot wounds #Osteomyelitis of left great toe and first metatarsal # Acute kidney injury #Cachexia #Severe protein calorie malnutrition, BMI 15.7 #Diabetes mellitus type II #Cough Instructions: - Continue antibiotics for osteomyelitis till September 27, 2025-2 g ceftriaxone via central line and doxycycline 100 mg twice a day. - Need to call interventional radiology and scheduling appointment for removal of central line on September 28, 2025 - Stop drug use, stop smoking. Obtain PFTs outpatient. - Return to emergency department if your symptoms worsen - Recommend anemia workup outpatient - Follow-up with primary care physician within 1 week. - Return to ED if your symptoms worsen 1) Wound care: - Left plantar great toe: irrigate with NS, pat dry. Cover with adaptic. Layer with dry fluff. Weave dry fluff between toes and secure with kerlix roll daily and PRN for falling off or soiling. - Right plantar foot: irrigate with NS, pat dry, pack with strip packing and cover with allyven dressing daily and PRN for falling off or soiling. Assessment and plan discussed with my attending physician Dr. Guillen and Dr. Mckinnon (PGY-2). Dr. Cid (PGY-1) ? physician vice president Status at Discharge Overall status at discharge: patient is progressing back to baseline Time Spent with Patient Time attestation: Total time spent providing and/or coordinating discharge services: Time spent: Greater than 30 minutes Exam Vital Signs Temp Pulse Resp BP Pulse Ox O2 Del Method O2 Flow Rate 97.2 F 84 18 131/78 H 99 Room Air 4 08/16/25 12:00 08/16/25 12:00 08/16/25 12:00 08/16/25 12:00 08/16/25 12:00 08/16/25 12:00 08/12/25 13:08 Narrative Exam GENERAL APPEARANCE: alert and oriented x 4, cachexia, no acute distress HEENT: Temporal wasting, atraumatic; PERRLA; EOMI; mucous membranes pink, moist; oropharynx clear NECK: Supple LUNGS: Distant breath sounds bilaterally HEART: Regular rate, regular rhythm ABDOMEN: non distended; normal BS; soft, no tenderness, no guarding, no rebound; no masses, no organomegaly, no hernia EXTREMITIES: Right mid foot wrapped in Kerlix, mild erythema, no swelling, no drainage. Left front foot wrapped in Kerlix, no drainage. NEUROLOGIC: awake; alert and oriented x4; cranial nerves II-XII grossly intact PSYCHIATRIC: appropriate mood and affect SKIN: warm, dry, normal color; no rashes Discharge Plan Plan Patient Disposition: Xfer Skilled Nsg Fac (SNF) Care Plan Goals: - Continue antibiotics for osteomyelitis till September 27, 2025-2 g ceftriaxone via central line and doxycycline 100 mg twice a day. - Need to call interventional radiology and scheduling appointment for removal of central line on September 28, 2025 - Stop drug use, stop smoking. Obtain PFTs outpatient. - Return to emergency department if your symptoms worsen - Recommend anemia workup outpatient - Follow-up with primary care physician within 1 week. - Return to ED if your symptoms worsen 1) Wound care: - Left plantar great toe: irrigate with NS, pat dry. Cover with adaptic. Layer with dry fluff. Weave dry fluff between toes and secure with kerlix roll daily and PRN for falling off or soiling. - Right plantar foot: irrigate with NS, pat dry, pack with strip packing and cover with allyven dressing daily and PRN for falling off or soiling. Prescriptions/Referrals Prescriptions/Med Rec: New ceftriaxone 2 gram recon soln 2 g IV Q24H doxycycline hyclate 100 mg capsule 100 mg PO BID Qty: 30 0RF insulin lispro 100 unit/mL Solution 1 sliding scale dose SCi ACHS Qty: 10 0RF Continued acetaminophen [Tylenol Extra Strength] 500 mg tablet 500 mg PO QID PRN (Reason: fever or pain) Qty: 30 0RF albuterol sulfate 90 mcg/actuation HFA aerosol inhaler 2 puff IH QID PRN (Reason: shortness of breath or wheezing) Qty: 18 0RF Referrals: Gregory Narayanan MD [Primary Care Provider, Family Practice] Agnieszka Frances MD [Physician, Wound Care] Patient/Caregiver Discharge Instructions Meds to Beds: No Discharge Activity: activity as tolerated Education Materials: Discharge Instructions for Cellulitis, Osteomyelitis Dc Print Language: Croatian Stand Alone Forms: Rayna Award Info., Patient Portal Info Letter Discharge Order Discharge Orders: Discharge (Routine); Ordered 08/16/25 Ordered By: Manuel Mckinnon Quality Discharge Quality Measures VTE prophylaxis Attestestation Attestation I have discussed and was present for the essential components of the discharge history, physical examination, diagnosis, and discharge treatment plan with the resident. I agree with the patient's discharge care as documented by the resident and amended herein by me. Yo Guillen, . The patient understood all discharge instructions, all questions were answered satisfactorily. The patient was instructed to return to the Emergency Department is symptoms worsened or persisted. Patient will require ceftriaxone 2 g daily and doxycycline 100 mg twice daily through 27 September 2025. Patient will need tunneled catheter removed at the end of this course, he will need to have an appointment made with interventional radiology to remove the catheter prior to being discharged from SNF. Patient's pain well-controlled at time of discharge, the patient was stable, afebrile and tolerating p.o. intake at time of discharge, see resident note above for additional details in regards to hospital stay. Although this document has been carefully reviewed, there may still be some p honetic and other typographical errors. These errors are purely grammatical due to imperfections in the software program and should not be construed in any way to compromise the substance of the patient's medical care during this visit.
== END 2025-08-16 15:08 | disposition skilled nursing facility (03) | DRG 720 ==
LOC: SERX 13:42 → SERHOLD 15:01 → S3SX 17:33
PROVIDERS: Radiology Diagnostic Radiology; Surgery; Admitting Provider Student in an Organized Health Care Education/Training Program; Emergency Provider Emergency Medicine; PCP Family Medicine; Visit Provider Student in an Organized Health Care Education/Training Program
PROC: 0H9NXZX Drainage of Left Foot Skin, External Approach, Diagnostic (ICD-10-PCS; principal; 2025-08-12 12:00)
DX: A41.9 Sepsis, unspecified organism (principal); R65.21 Severe sepsis with septic shock; L03.116 Cellulitis of left lower limb; E11.69 Type 2 diabetes mellitus with other specified complication; I10 Essential (primary) hypertension; F15.90 Other stimulant use, unspecified, uncomplicated; F17.210 Nicotine dependence, cigarettes, uncomplicated; M86.172 Other acute osteomyelitis, left ankle and foot; N17.9 Acute kidney failure, unspecified; R64 Cachexia; Z68.1 Body mass index [BMI] 19.9 or less, adult; Z59.01 Sheltered homelessness; F17.200 Nicotine dependence, unspecified, uncomplicated; E43 Unspecified severe protein-calorie malnutrition; L02.611 Cutaneous abscess of right foot; L02.612 Cutaneous abscess of left foot; L03.115 Cellulitis of right lower limb
CPT/HCPCS: 36415; 71045; 73630; 73718; 77001; 80053; 80061; 80074; 80202; 80307; 81001; 82436; 82570; 83036; 83605; 83735; 83880; 84100; 84133; 84145; 84156; 84300; 84484; 84540; 85025; 85610; 85652; 85730; 86140; 86580; 86703; 87040; 87070; 87075; 87077; 87186; 87205; 92610; 93005; 93225; 93925; 96365; 96372; 97162; 99283; A4649; C1894; J0692; J0696; J0736; J1171; J1644; J1815; J2250; J2543; J2704; J3010; J3373; J3490; J7030; J7050; J7120; A9270; C1751; J1836

== ENCOUNTER → 2025-09-01 | Outpatient (CLI) | payer MEDICAID, SELFPAY | END | disposition home or self-care (01) | PROVIDERS: PCP Hospitalist; Referring Provider Hospitalist; Visit Provider Student in an Organized Health Care Education/Training Program | DX: T81.89XA Other complications of procedures, not elsewhere classified, initial encounter (principal); S91.302A Unspecified open wound, left foot, initial encounter; S91.102A Unspecified open wound of left great toe without damage to nail, initial encounter; X58.XXXA Exposure to other specified factors, initial encounter; E11.621 Type 2 diabetes mellitus with foot ulcer; L97.422 Non-pressure chronic ulcer of left heel and midfoot with fat layer exposed; L97.522 Non-pressure chronic ulcer of other part of left foot with fat layer exposed; I10 Essential (primary) hypertension; E11.40 Type 2 diabetes mellitus with diabetic neuropathy, unspecified; Z79.4 Long term (current) use of insulin; Z79.84 Long term (current) use of oral hypoglycemic drugs; F17.200 Nicotine dependence, unspecified, uncomplicated; M86.8X7 Other osteomyelitis, ankle and foot | CPT/HCPCS: 11042; 99212; A9270; G0463 ==

== ENCOUNTER → 2025-09-08 | Outpatient (CLI) | payer MEDICAID, SELFPAY | END | disposition home or self-care (01) | LOC: SWHD 09:05 | PROVIDERS: Visit Provider Student in an Organized Health Care Education/Training Program | DX: T81.89XA Other complications of procedures, not elsewhere classified, initial encounter (principal); S91.302A Unspecified open wound, left foot, initial encounter; S91.102A Unspecified open wound of left great toe without damage to nail, initial encounter; X58.XXXA Exposure to other specified factors, initial encounter; E11.621 Type 2 diabetes mellitus with foot ulcer; L97.425 Non-pressure chronic ulcer of left heel and midfoot with muscle involvement without evidence of necrosis; L97.522 Non-pressure chronic ulcer of other part of left foot with fat layer exposed; I10 Essential (primary) hypertension; E11.40 Type 2 diabetes mellitus with diabetic neuropathy, unspecified; Z79.4 Long term (current) use of insulin; Z79.84 Long term (current) use of oral hypoglycemic drugs; F17.200 Nicotine dependence, unspecified, uncomplicated; M86.8X7 Other osteomyelitis, ankle and foot | CPT/HCPCS: 11044; 11047 ×2; 11042; A9270 ==

== ENCOUNTER 2025-09-14 09:32 | Emergency (ER) | payer MEDICAID, SELFPAY ==
[2025-09-14 09:45] VITALS: BP 148/90; PULSE 100; PULSE 103; RESP 16; TEMP 36.7; O2SAT 100; O2SAT 98; BMI 19.1
--- NOTE | 2025-09-14 09:46 | PD.EDADULT ---
ED General RME/HPI General Chief complaint: General Adult/Misc Complain Stated complaint: PICC LINE REMOVAL Time Seen by Provider: 09/14/25 09:48 Arrival date/time: 09/14/25 09:32 RME / HPI RME / HPI narrative: 60 year old male with history of hypertension, diabetes, diagnosed with osteomyelitis of left great toe and first metatarsal on 08/10/2025 and admitted where he underwent I&D abscess left great toe and right midfoot on the plantar aspect by surgeon Dr. Andrea on 08/12/2025, started on ceftriaxone 2 g daily and oral doxycycline through September 27, 2025 presents to the ED BIBA from [facility] home for PICC line removal. Per medics report, the patient signed out against medical advice from [facility] today and was sent here for removal of PICC line. In the ED, he states he does not want the PICC line removed and wants to complete his antibiotics which are scheduled through September 27, 2025. States he is open to being placed at another SNF though does not want to return to [facility]. No complaints reported. Related Data Previous Rx's ?Medication ?Instructions ?Recorded acetaminophen 500 mg tablet 500 mg PO QID PRN fever or pain 06/07/20 (Tylenol Extra Strength) #30 tabs albuterol sulfate 90 mcg/actuation 2 puff inhalation QID PRN 06/07/20 aerosol inhaler shortness of breath or wheezing #18 grams ceftriaxone 2 gram intravenous 2 g IV Q24H 08/15/25 solution doxycycline hyclate 100 mg capsule 100 mg PO BID #30 caps 08/15/25 insulin lispro 100 unit/mL 1 sliding scale dose SCi ACHS #10 08/15/25 subcutaneous solution mL Allergies Allergy/AdvReac Type Severity Reaction Status Date / Time No Known Allergies Allergy Verified 09/14/25 09:45 Review of Systems Review of Systems Systems Reviewed: All systems reviewed, normal except as documented Past Medical History Past Medical History CARDIAC: Positive Hypercholesterolemia and Hypertension ENDOCRINE: Positive Endocrine Disorders and Diabetes Mellitus Type 2 Social History SMOKING STATUS: Current every day smoker ED Exam Narrative Physical exam: Generally patient is alert and cachectic but oriented, heart regular rate and rhythm, chest shows a right upper chest tunneled catheter to be in place without erythema or discharge at the insertion site, lungs clear to auscultation equal bilaterally, abdomen soft and nontender, extremities show very shallow based superficial ulceration to the undersurface of the left great toe and a larger ulceration to the heel and plantar surface of the right foot without discharge or erythema. Neurologic exam showed the patient with a Sara Coma Scale of 15 without focal motor deficit Course Quality Measures none Orders Category Date Time Status Consult [employer] NOW Care 09/14/25 09:51 Completed Referral Physical Therapy Stat Cons 09/14/25 09:52 Active XR chest 1V portable Stat Exams 09/14/25 09:50 Taken CBC Stat Lab 09/14/25 09:59 Completed CMP [Comprehensive Metabolic Panel] Stat Lab 09/14/25 09:59 Completed Vital Signs Vital signs: Vital Signs Temperature 98.1 F 09/14/25 09:45 Pulse Rate 103 H 09/14/25 09:45 Respiratory Rate 16 09/14/25 09:45 Blood Pressure 148/90 H 09/14/25 09:45 Pulse Oximetry (%) 100 09/14/25 09:45 Oxygen Delivery Method Room Air 09/14/25 09:45 Pulse ox is 100% on room air which is adequate. Discharge Plan Plan Patient Disposition: Xfer Skilled Nsg Fac (SNF) Prescriptions/Referrals Prescriptions/Med Rec: No Action acetaminophen [Tylenol Extra Strength] 500 mg tablet 500 mg PO QID PRN (Reason: fever or pain) Qty: 30 0RF albuterol sulfate 90 mcg/actuation HFA aerosol inhaler 2 puff IH QID PRN (Reason: shortness of breath or wheezing) Qty: 18 0RF ceftriaxone 2 gram recon soln 2 g IV Q24H doxycycline hyclate 100 mg capsule 100 mg PO BID Qty: 30 0RF insulin lispro 100 unit/mL Solution 1 sliding scale dose SCi ACHS Qty: 10 0RF Referrals: Mike Nunez MD [Primary Care Provider] - In 1 week Problem List Clinical Impression: Osteomyelitis Patient/Caregiver Discharge Instructions Education Materials: Osteomyelitis Dc Additional Instructions: Continue the doxycycline 100 mg twice a day through September 27. Continue the ceftriaxone 2 g daily IV through September 27. Print Language: Slovenian Stand Alone Forms: Rayna Award Info., Patient Portal Info Letter MDM Narrative Sign Out note: I researched the patient in the computer. He has osteomyelitis of the phalanges of the left great toe and left first metatarsal. It was recommended by infectious disease that the patient undergo p.o. doxycycline treatment and IV ceftriaxone treatment until September 27 which is another 13 days. Patient refuses to go back to the facility from which she came which was at [facility]. I consulted rn social work who has found an accepting facility. Patient had labs drawn and a chest x-ray to verify good placement of this PICC line and the PICC line is in good placement and there was no acute lab abnormality. Physical therapy consultation was also obtained. Patient is stable and okay for discharge to the new halfway facility. MDM hospital course (for use when minimal MDM required): [place], am scribing for and in the presence of Dr. Shah. Notified by our licensed master social worker that the patient has been evaluated by PT and they recommend SNF placement. States the patient has been accepted at [facility] and at this time pending insurance authorization. Clinical Information Provided by: patient and EMS Medical Records reviewed [facility], EMS and skilled nursing Medical Records additional comments: I reviewed PMHx and medication list from [facility] Meds/Rx considered, not ordered None Labs/Rad/Tests considered, not ordered None Chronic Illness/Social Conditions which may negatively complicate care or outcome(s)-explain: skilled nursing/debilitated
--- NOTE | 2025-09-14 09:50 | XR_ITS ---
EXAMINATION: AP chest single view TECHNIQUE: AP portable upright chest single view Date and time: September 14, 2025, 10:28 a.m. COMPARISON: August 10, 2025 INDICATIONS: Chest pain today. FINDINGS: Right internal jugular central line satisfactory position Normal heart size No lobar pneumonia or pulmonary edema IMPRESSION: No lobar pneumonia or pulmonary edema
[2025-09-14 10:11] LABS: Basophils # (Auto) 0.1 Thou/mm3 (0.0-0.2); Basophils % (Auto) 2 % (0-2.5); Eosinophils # (Auto) 0.3 Thou/mm3 (0.0-0.5); Eosinophils % (Auto) 5 % (0-10); Hematocrit 30.9 % (41.0-53.0); Hemoglobin 10.0 g/dL (13.5-16.0); Immature Granulocytes Auto 0.03 Thou/mm3 (0.00-0.00); Lymphocytes # (Auto) 1.8 Thou/mm3 (1.0-4.8); Lymphocytes % (Auto) 27 % (10-50); Mean Corpuscular HGB Conc 32.4 g/dl (31.0-37.0); Mean Corpuscular Hemoglobin 31.5 pg (25.0-35.0); Mean Corpuscular Volume 98 fL (80-100); Monocytes # (Auto) 0.6 Thou/mm3 (0.0-0.8); Monocytes % (Auto) 9 % (0-12); Neutrophils # (Auto) 3.9 Thou/mm3 (1.8-7.7); Neutrophils % (Auto) 57 % (37-80); Nucleated Red Blood Cell # 0.00 Thou/mm3 (0.00-0.00); Nucleated Red Blood Cell % 0 /100 WBC (0); Platelet Count 212 Thou/mm3 (140-440); RDW Standard Deviation 48.3 fL (35.1-43.9); Red Blood Count 3.17 Miln/mm3 (4.50-5.90); White Blood Count 6.8 Thou/mm3 (3.8-10.6)
--- NOTE | 2025-09-14 10:20 | PC.NURSE ---
Physical TherapySergey, at bedside assessing patient at this time.
[2025-09-14 10:39] LABS: Alanine Aminotransferase 30 U/L (10-49); Albumin, Serum 4.2 gm/dL (3.4-4.8); Albumin/Globulin Ratio 1.1 (1.2-2.2); Alkaline Phosphatase 69 U/L (46-116); Anion Gap 8 (7-16); Aspartate Amino Transferase 26 U/L (0-34); BUN/Creatinine Ratio 24 Ratio (12-20); Bilirubin,Total 0.2 mg/dL (0.3-1.2); Blood Urea Nitrogen 24 mg/dL (9-23); Calcium 9.8 mg/dL (8.3-10.6); Calcium (Corrected) 9.8 mg/dL (8.5-10.1); Carbon Dioxide 27.3 mMol/L (20.0-31.0); Chloride 105 mMol/L (98-107); Creatinine (Component) 1.0 mg/dL (0.6-1.3); Estimated Creatinine Clearance 58.3 mL/min (>60); Globulin 3.8 gm/dL (2.3-3.5); Glucose 204 mg/dL (74-106); Osmolality,Calculated 289 (275-295); Potassium 4.7 mMol/L (3.4-5.1); Sodium 140 mMol/L (136-145); Total Protein 8.0 gm/dL (5.7-8.2); eGFR > 60 See Note
--- NOTE | 2025-09-14 10:47 | PC.SS ---
Addendum entered by Shalini Krishnan 09/14/25 14:52: SS follow up note; SS was contacted by Mary ETA is set up for 1630. SS will update patient's nurse. Addendum entered by Shalini Krishnan 09/14/25 14:37: SS was contacted by Lary from [facility] informing SS that authorization was obtained. SS contacted [facility] to schedule transportation. [facility] informed SS they would contact SS with ETA. SS updated patient's nurse [place] Addendum entered by Shalini Krishnan 09/14/25 12:25: SS follow up note; SS contacted Caron from [facility], er follow up on authorization. Caron informed SS that she would have management contact SS to follow up. SS will stand by for further needs. Addendum entered by Shalini Krishnan 09/14/25 11:19: SS follow up note; SS sent clinicals to [facility] for authorization. SS contacted Lary from [facility], she informed SS she would be submitting for authorization as well once she gets to her office. Original Note: SS met with patient at bedside to discuss discharge plan. Patient reports he does not want to return back to [facility] and would like to discharge back to another SNF. SS submitted SNF inquiry through [employer] platform. SS met with patient to offer SNF choices. Patient would like to discharge to [facility]. SS contacted Lary from [facility] and once PT notes are available she informed SS she would be submitting auth. SS will send PASSR through [employer] as well.
--- NOTE | 2025-09-14 10:59 | PC.PT ---
PT eval complete. Please see note for details.
[2025-09-14 14:43] VITALS: BP 103/72; PULSE 94; RESP 17; TEMP 37.1; O2SAT 96
--- NOTE | 2025-09-14 14:49 | PC.SS ---
SS was contacted by patient's nurseRosetta requesting transportation. SS set up transportation with [facility], [phone]. Reference # [id number]. Patient will be transported to their residents. SS will update patient's nurse.
--- NOTE | 2025-09-14 15:54 | PC.NURSE ---
[facility] leaving with [facility], a&O x4, vss
== END 2025-09-14 16:02 | disposition skilled nursing facility (03) ==
PROVIDERS: Emergency Provider Emergency Medicine; PCP Hospitalist
DX: M86.9 Osteomyelitis, unspecified (principal)
CPT/HCPCS: 36415; 71045; 80053; 85025; 99283

== ENCOUNTER → 2025-09-22 | Outpatient (CLI) | payer MEDICAID, SELFPAY | END | disposition home or self-care (01) | LOC: SWHD 08:04 | PROVIDERS: Visit Provider Student in an Organized Health Care Education/Training Program | DX: T81.89XA Other complications of procedures, not elsewhere classified, initial encounter (principal); S91.302A Unspecified open wound, left foot, initial encounter; S91.102A Unspecified open wound of left great toe without damage to nail, initial encounter; X58.XXXA Exposure to other specified factors, initial encounter; L97.412 Non-pressure chronic ulcer of right heel and midfoot with fat layer exposed; E11.621 Type 2 diabetes mellitus with foot ulcer; L97.425 Non-pressure chronic ulcer of left heel and midfoot with muscle involvement without evidence of necrosis; L97.522 Non-pressure chronic ulcer of other part of left foot with fat layer exposed; I10 Essential (primary) hypertension; E11.40 Type 2 diabetes mellitus with diabetic neuropathy, unspecified; Z79.4 Long term (current) use of insulin; Z79.84 Long term (current) use of oral hypoglycemic drugs; F17.200 Nicotine dependence, unspecified, uncomplicated; M86.8X7 Other osteomyelitis, ankle and foot | CPT/HCPCS: 97597; A9270 ==

== ENCOUNTER → 2025-10-06 | Outpatient (CLI) | payer MEDICAID, SELFPAY | END | disposition home or self-care (01) | LOC: SWHD 08:59 | PROVIDERS: PCP Hospitalist; Referring Provider Hospitalist; Visit Provider Student in an Organized Health Care Education/Training Program | DX: T81.89XA Other complications of procedures, not elsewhere classified, initial encounter (principal); S91.302A Unspecified open wound, left foot, initial encounter; S91.102A Unspecified open wound of left great toe without damage to nail, initial encounter; E11.621 Type 2 diabetes mellitus with foot ulcer; X58.XXXA Exposure to other specified factors, initial encounter; L97.418 Non-pressure chronic ulcer of right heel and midfoot with other specified severity; L97.425 Non-pressure chronic ulcer of left heel and midfoot with muscle involvement without evidence of necrosis; L97.522 Non-pressure chronic ulcer of other part of left foot with fat layer exposed; I10 Essential (primary) hypertension; E11.40 Type 2 diabetes mellitus with diabetic neuropathy, unspecified; Z79.4 Long term (current) use of insulin; Z79.84 Long term (current) use of oral hypoglycemic drugs; F17.200 Nicotine dependence, unspecified, uncomplicated | CPT/HCPCS: 97597; A9270 ==